=== PATIENT | male | born 1960 | race Hispanic/Latino ===

== ENCOUNTER 2025-01-21 11:20 | Inpatient (IN) | payer SELFPAY ==
[~2025-01-21] VITALS: Ht 152.4 cm; Wt 78.2 kg
[2025-01-21] VITALS (16 sets, daily range): BP systolic 116–172; BP diastolic 45–96; PULSE 57–71; RESP 15–27; TEMP 98.1–98.6; O2SAT 95
--- NOTE | 2025-01-21 11:30 | NUR ---
PT ARRIVED IN ROOM 15. PRESENTS WITH ACUTE CHEST PAIN WELL DIAPHORESIS. BILATERAL 18G IVS ESTABLISHED. CONSENT FORM SIGNED. PT WAS ATTACHED TO THE LANGUAGE INSTRUCTOR. 324MG OF ASPIRIN GIVEN, 1 PLAVIX, AND 5000 UNITS OF A HEPARIN BOLUS WAS GIVEN. HEPARIN DRIP STARTED AT A RATE OF 17 UNITS INITIATED AT BEDSIDE.
--- NOTE | 2025-01-21 11:31 | ERN ---
General Chief Complaint: Chest Pain Stated Complaint: CHEST PAIN Time Seen by MD: 11:21 Source: patient History of Present Illness Initial Comments Is a 64-year-old gentleman coming in complaining of chest pain. Patient states that the chest pain began 30 minutes prior to arrival. He also states he does has a history of diabetes and hypertension. Allergies: Coded Allergies: No Known Drug Allergies (Unverified Allergy, Unknown, 01/21/25) Past Medical History Past Medical History: No Pertinent History Past Surgical History: None ROS Dictation CONSTITUTIONAL: No chills, no fever, no weakness, no diaphoresis, no malaise. HEAD/FACE: No signs of trauma. EENT: No eye pain, no blurred vision, no tearing, no double vision, no ear pain, no ear discharge, no nose pain, no nasal congestion, no throat pain, no throat swelling, no mouth pain. RESPIRATORY: No cough, no orthopnea, SOB, no stridor, no wheezing. CARDIOVASCULAR: chest pain, no edema, no palpitations, no syncope. GASTROINTESTINAL/ABDOMINAL: No abdominal pain, no constipation, no diarrhea, no nausea, no vomiting. GENITOURINARY: No abnormal discharge, no dysuria, no frequent urination, no he maturia. No complaints of pain in the genitals. MUSCULOSKELETAL: No back pain, no gout, no joint pain, no joint swelling, no m uscle pain, no muscle stiffness, no neck pain. INTEGUMENTARY: No change in color, no change in hair/nails, no dryness, no lesi on, no lumps, no rash. NEUROLOGICAL/PSYCH: No anxiety, not depressed, no emotional problem, no headache, no numbness, no pre-existing deficit, no history of seizures, no tremors, no weakness. HEMATOLOGIC/LYMPHATIC: Not anemic, no history of blood clots, no apparent bleeding, no bruising, glands not swollen. All Systems Negative, Except as Noted. Physical Exam Physical Exam Dictation VITAL SIGNS: Reviewed. GENERAL APPEARANCE: Alert, oriented x3, acute distress, obese. HEAD AND FACE: Non-traumatic. EYES: PERRL, pink conjunctivas, eyelid no trauma, anterior chamber clear. EARS: Pinnas intact and no signs of trauma or erythema. Ear canals clear and no discharge. TMs no erythema. NOSE: No discharge, no bleeding. OROPHARYNX: Mouth normal, teeth no caries, tongue pink. Pharynx clear, no erythema. Tonsils no exudates, no abscesses noted. Mucous membrane moist. NECK: Supple, non-tender, no thyromegaly, no masses, no JVD, no bruits. BREAST: Deferred. CHEST: No tenderness, no crepitus, no paradoxical movement, no retractions. LUNGS: Clear, well-ventilated, symmetric, no rales, no wheezing, no rhonchi, no stridor, good breath sounds bilaterally. HEART: Regular rate, regular rhythm, no murmur, no gallops. VASCULAR: No peripheral edema. ABDOMEN: Soft, positive bowel sounds, nondistended, no guarding, nontender, no rebound, no masses no hepatomegaly, no splenomegaly, no Dickson's sign, no hernias. RECTAL: Deferred. GENITAL: Deferred. NEUROLOGICAL: Normal speech, gross motor function intact, gross sensory function intact. MUSCULOSKELETAL: Neck nontender, full range of motion, back nontender, full range of motion. EXTREMITIES: Nontender, full range of motion. SKIN: Color pink, dry, no turgor, no rash, no lacerations, no abrasions, no contusions. LYMPHATICS: Deferred. Results Laboratory and Microbiology Labs Reviewed?: Yes EKG/XRAY/US/CT/MRI EKG Comment EKG- ED Course Orders Procedure Category Date Status Time Cbc With Differential LAB 01/21/25 Logged 11:23 Prothrombin Time With LAB 01/21/25 Logged INR 11:23 Lipid Panel LAB 01/21/25 Logged 11:23 Chest 1vw RAD 01/21/25 Logged 11:23 12 Lead Ekg Tracing- EKG 01/21/25 Logged Technical 11:23 Clopidogrel 75mg Tab PHA 01/21/25 Logged (Plavix 75mg) 11:30 Nitroglycerin 0.4mg PHA 01/21/25 Logged Sl Tab (Nitrostat) 11:30 Magnesium LAB 01/21/25 Logged 11:23 Creatine Kinase, Total LAB 01/21/25 Logged 11:23 Troponin I High LAB 01/21/25 Logged Sensitivity 11:23 Aspirin 325mg Tab PHA 01/21/25 Logged (Aspirin 325mg Tab) 11:30 Urinalysis Profile LAB 01/21/25 Logged 11:23 Partial LAB 01/21/25 Logged Thromboplastin Time 11:23 Basic Metabolic Panel LAB 01/21/25 Logged 11:23 Nitroglycerin 0.4mg PHA 01/21/25 Complete Sl Tab (Nitrostat) 11:26 Aspirin 325mg Ec Tab PHA 01/21/25 Complete (Aspirin 325mg Ec T 11:26 Clopidogrel 300mg Tab PHA 01/21/25 Complete (Plavix 300mg Tab) 11:27 Heparin 5,000 Unit PHA 01/21/25 Complete Vial (Heparin 5,000 U 11:31 [id number]/250ml PHA 01/21/25 Transmitted Iv Bag 12:00 Heparin 5,000 Unit PHA 01/21/25 Transmitted Vial (Heparin 5,000 U 12:00 Current Medications Medications (Trade) Dose Ordered Sig/Lalitha Route PRN Reason Start Time Stop Time Status Last Admin Dose Admin Aspirin (Aspirin 325mg Ec Tab) 325 mg STK-MED ONCE PO 01/21/25 11:26 01/21/25 11:27 DC Aspirin (Aspirin 325mg Tab) 325 mg ONCE ONCE PO 01/21/25 11:30 01/21/25 11:31 UNV Clopidogrel Bisulfate (plaVIX 300MG TAB) 300 mg STK-MED ONCE .ROUTE 01/21/25 11:27 01/21/25 11:27 DC Clopidogrel Bisulfate (plaVIX 75MG) 75 mg ONCE ONCE PO 01/21/25 11:30 01/21/25 11:31 UNV Heparin Sodium (Porcine) (HEParin 5,000 UNIT VIAL) 5,000 unit STK-MED ONCE .ROUTE 01/21/25 11:31 01/21/25 11:31 DC Nitroglycerin (Nitrostat) 0.4 mg Q5M PRN SL CHEST PAIN 01/21/25 11:30 UNV Nitroglycerin (Nitrostat) 0.4 mg STK-MED ONCE SL 01/21/25 11:26 01/21/25 11:27 DC DX & DISP Departure Condition: Stable Referrals: SELF,REFERRAL (PCP) ISABELLA DIAZ MD Jan 21, 2025 11:31
[2025-01-21] MEDS: ASPIRIN 325MG EC TAB PO ONE (11:35)
[2025-01-21] MEDS: NITROGLYCERIN 0.4 MG SL TAB SL ONE (11:36)
[2025-01-21] MEDS: ASPIRIN 325MG TAB PO ONE (11:37)
[2025-01-21] MEDS: NITROGLYCERIN 0.4 MG SL TAB SL PRN (11:37)
[2025-01-21] MEDS ORDERED: SODIUM BICARB 50MEQ 50ML VIAL 50 ML ONE (11:38)
[2025-01-21] MEDS ORDERED: HEParin-NS 1,000 UNIT/500 ML 1,000 ML IV ONE (11:38)
[2025-01-21] MEDS ORDERED: LIDOCAINE HCL 400MG/20ML VIAL ONE (11:38)
[2025-01-21] MEDS ORDERED: IOHEXOL 350 MG/ML 100ML INFUS..BTL IV ONE ×2 (11:38→13:04)
--- NOTE | 2025-01-21 11:40 | NUR ---
pt taken by laboratory equipment installer and dr francois
[2025-01-21 11:41] LABS: IMMATURE GRANULOCYTE ABSOLUTE 0.04 K/uL (0-1); NUCLEATED RED BLOOD CELLS 0.0 % (0.0-0.19); PLATELET COUNT (AUTO) 238 K/uL (130-400); RED BLOOD CELL COUNT(AUTO) 5.20 MIL/uL (4.50-6.20); RED CELL DISTRIBUTION WIDTH 13.7 % (11.0-15.5); WHITE BLOOD COUNT (AUTO) 9.2 K/uL (4.8-10.8)
--- NOTE | 2025-01-21 11:47 | EKG ---
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
[2025-01-21] MEDS ORDERED: NITROGLYCERIN 50MG VIAL ONE (11:51)
[2025-01-21] MEDS ORDERED: BIVALIRUDIN 250 MG/VIAL IV ONE (11:52)
--- NOTE | 2025-01-21 11:52 | CONS ---
The patient is admitted from the emergency room with a chief complaint of chest pain which began this morning at a time the patient can not specify and is associated with shortness of breath. Patient is intense in the patient's bagging us for relief. He does seem oriented to person place and time. He denies lung problems, ulcers or GI bleeding, but admits to reflux and stomach discomfort which has been chronic and also recent. Patient has been experiencing chest discomfort off and on recently that has relieved by drinking soft drinks. He has no history of asthma or wheezing, difficulty passing urine, syncope or presyncope or previous strokes or MIs. He admits to bilateral claudication with ambulation. Remaining medical history is limited because of the urgent nature of the evaluation and his emergency presentation. Physical exam shows pulse 48 per minute with blood pressure 135/78 and saturation 92% on 6 L oxygen. Neck veins are difficult to assess because the patient has drains and grunts, carotid volume is fair, chest is clear and respiratory pattern is nonlabored. No retractions. S1 and S2 are preserved, no murmur, regular rhythm. Abdomen is scaphoid with normal bowel sounds. Extremities are free of edema. Diminished pulses in feet, one to 2+ radial pulses. Twelve lead ECG shows [address]-elevation in the inferior leads and significant ST elevation in leads V3-V6 with ST depression in leads one and aVL. Laboratory data is pending Impression and plan: Patient presents with a ST-elevation myocardial infarct affecting the anterior and inferior leads, extensive area of myocardial injury, and we will proceed with invasive evaluation and treatment. Vitals/Labs Laboratory Tests 01/21/25 11:33 Allergies: Coded Allergies: No Known Drug Allergies (Unverified Allergy, Unknown, 01/21/25) Medications Current Medications Clopidogrel Bisulfate 75 mg ONCE ONCE PO; Start 01/21/25 at 11:30; Stop 01/21/25 at 11:34; Status DC Nitroglycerin 0.4 mg Q5M PRN SL Last administered on 01/21/25at 11:39; Start 01/21/25 at 11:30 Aspirin 325 mg ONCE ONCE PO Last administered on 01/21/25at 11:37; Start 01/21/25 at 11:30; Stop 01/21/25 at 11:34; Status DC Nitroglycerin 0.4 mg STK-MED ONCE SL; Start 01/21/25 at 11:26; Stop 01/21/25 at 11:27; Status DC Aspirin 325 mg STK-MED ONCE PO; Start 01/21/25 at 11:26; Stop 01/21/25 at 11:27; Status DC Clopidogrel Bisulfate 300 mg STK-MED ONCE .ROUTE; Start 01/21/25 at 11:27; Stop 01/21/25 at 11:27; Status DC Heparin Sodium (Porcine) 5,000 unit STK-MED ONCE .ROUTE; Start 01/21/25 at 11:31; Stop 01/21/25 at 11:31; Status DC Heparin Sodium/ Dextrose 250 ml @ 0 mls/hr PROTOCOL PRN IV; Start 01/21/25 at 12:00; Stop 01/22/25 at 11:59 Heparin Sodium (Porcine) 5,000 unit ONCE ONCE IV; Start 01/21/25 at 12:00; Stop 01/21/25 at 12:01 Heparin Sodium/ Dextrose 250 ml @ As Directed STK-MED ONCE IV; Start 01/21/25 at 11:34; Stop 01/21/25 at 11:34; Status DC Clopidogrel Bisulfate 300 mg ONCE ONCE PO Last administered on 01/21/25at 11:38; Start 01/21/25 at 12:00; Stop 01/21/25 at 12:01 Lidocaine HCl 20 ml STK-MED ONCE .ROUTE; Start 01/21/25 at 11:38; Stop 01/21/25 at 11:38; Status DC Sodium Bicarbonate 50 ml @ As Directed STK-MED ONCE .ROUTE; Start 01/21/25 at 11:38; Stop 01/21/25 at 11:38; Status DC Iohexol 35,000 mg STK-MED ONCE IV; Start 01/21/25 at 11:38; Stop 01/21/25 at 11:38; Status DC Heparin Sodium (Porcine) 10,000 unit STK-MED ONCE .ROUTE; Start 01/21/25 at 11:38; Stop 01/21/25 at 11:38; Status DC Heparin Sodium/ Sodium Chloride 1,000 ml @ As Directed STK-MED ONCE IV; Start 01/21/25 at 11:38; Stop 01/21/25 at 11:38; Status DC Nitroglycerin/ Dextrose 250 ml @ 0 mls/hr PROTOCOL IV; Start 01/21/25 at 12:00; Stop 02/20/25 at 11:59 Nitroglycerin/ Dextrose 1 ml @ As Directed STK-MED ONCE .ROUTE; Start 01/21/25 at 11:40; Stop 01/21/25 at 11:40; Status DC ARIEL PENDLETON MD Jan 21, 2025 11:52
[2025-01-21] MEDS ORDERED: MIDAZOLAM HCL 1 MG/ML 2ML VIAL ONE (11:55)
[2025-01-21 11:58] LABS: CREATINE KINASE, TOTAL 117.0 U/L (21-232); CREATININE 1.5 mg/dL (0.5-1.3); GLOMERULAR FILTR. RATE CALC 52.0 mL/min (>90); GLUCOSE,RANDOM 219.0 mg/dL (70-105); LDL DIRECT 171.0 mg/dL (0-99); SODIUM SERUM 142.0 mmol/L (136-145); UREA NITROGEN, BLOOD 27.0 mg/dL (7-18)
[2025-01-21] MEDS ORDERED: NITROGLYCERIN 50MG/D5W 250ML 250 BOT IV SCH (12:00)
[2025-01-21] MEDS ORDERED: IOHEXOL-350 50ML VIAL IV ONE (12:12)
[2025-01-21] MEDS ORDERED: ATROPINE 1MG SYG IVP ONE (12:21)
[2025-01-21] MEDS: NITROGLYCERIN 50MG/D5W 250ML 1 BOT ONE (12:22)
[2025-01-21] MEDS ORDERED: MAGNESIUM 2GM PREMIX 50ML 50 ML IV SCH (12:30)
[2025-01-21] MEDS ORDERED: HEParin-NS 1,000 UNIT/500 ML 500 ML IV ONE (12:34)
[2025-01-21 13:10] LABS: ASPARTATE AMINOTRANSFERASE 35.0 U/L (10-37); TOTAL PROTEIN, SERUM 7.7 g/dL (6.0-8.3)
--- NOTE | 2025-01-21 14:19 | PRN ---
Coronary Arteriogram With Ptca And Drug-Eluting Stent To Proximal Right Coronary And Distal Right Coronary, As Well As Common Left Circumflex And Om2 Indication: STEMI with extensive ST-elevation in inferior leads and V2-V6. Technique: Patient was brought to the lab in a fasting state after informed consent and sedated with 1 mg Versed and 50 mcg fentanyl. Additional fentanyl was administered as needed during the procedure. Under local anesthesia with 1% lidocaine using ultrasound guidance right radial access was gained at a 5/6 [place] Terumo sheath was inserted. A cocktail of 5000 units aqueous heparin, 200 mcg nicardipine and 200 mcg nitroglycerin were administered via the radial sheath. There was tortuosity at the right brachial so a baby J wire was used to advance a six [place] take to the aortic root where left and right coronary arteriograms were attempted unsuccessfully because we could not cannulate with this catheter. We exchanged for a six [place] 3 cm left Ena and with some difficulty engage the left main for left coronary arteriography. We exchanged for a six [place] JR4 and engage the right coronary for right coronary arteriograms. We administered an additional 1500 units aqueous heparin intravenously. We then wire the right coronary with a 300 cm whisper wire and advanced a 3 x 20 mm mm Euphora to the proximal right coronary lesion and free dilated. We could not advance a stent so we exchanged for a guide liner, then using a fine cross exchange catheter we exchanged for a wiggle wire which was positioned in the posterolateral branch of the right coronary. We then successfully advanced a 4 x 34 mm monroe [place] drug-eluting stent across the proximal right coronary stenosis, optimize positioning and deployed at nominal pressure. We inspected results and exchanged for a 3.5 x 18 mm monroe [place] which was positioned across the distal right coronary stenoses and deployed at nominal pressure. We inspected results angiographically and exchanged for a six [place] 3.0 XB guide with which we engage the left main. We then wired the circumflex with another whisper wire and advanced the guide liner to the proximal circumflex. We pre-dilated with a 3.5 by 20 mm Euphora and exchanged for a 4 x 22 monroe [place] drug-eluting stent which was positioned in the proximal circumflex and deployed at nominal pressure. We then exchanged for a 3.5 x 12 mm monroe [place] which was deployed at the origin of the OM2 at nominal pressure. Final results were inspected and we with due the catheters and applied a Terumo sheath for hemostasis with excellent hemostasis and no complications. Heparinization was checked by a [employer] ARCHITECT and was above 250 throughout the procedure. Patient was transferred from the lab in stable condition. 175 mL contrast was administered in total. Results: This is a right-dominant system. The right coronary supplies the posterior descending and three posterolateral johnson. There is a segmental diffuse 30 mm long 98% stenosis commencing from the conus branch through the right ventricular marginal, then there was a 90% stenosis just proximal to the 2nd posterolateral. The rest of the right coronary system is free of high-grade disease. The conus arises very near the ostium of the right coronary. The left main is free of disease. The left anterior descending supplies to diagonals and courses to the apex and is free of disease. The left circumflex supplies a tiny 1st obtuse marginal and a very large 2nd obtuse marginal which approaches the apex. Proximal to and spanning the origin of the 1st obtuse marginal is a critical 90 % stenosis and at the origin of the 2nd obtuse marginal is another 90% stenosis. Intervention: The proximal right coronary 98% culprit lesion is reduced to a 0% residual with ÁNGELA 3 flow. The distal right coronary 90% lesion is reduced to a 0% residual with ÁNGELA three flow. Proximal left circumflex 90% stenosis reduced to 0% residual with ÁNGELA three flow. Distal left circumflex 90% stenosis reduced to 0% residual with ÁNGELA three flow. Conclusions: Massive inferior and lateral STEMI treated successfully with right coronary and left circumflex drug-eluting stent implant, door to balloon time 59 minutes. ARIEL PENDLETON MD Jan 21, 2025 14:19
[2025-01-21] MEDS: 0.9%NACL 1000ML 1,000 ML IV SCH (14:34)
[2025-01-21] MEDS ORDERED: GLIP-302 PO (14:58)
[2025-01-21] MEDS ORDERED: GLUCAGON 1MG KIT 1 MG ML IM PRN (15:30)
[2025-01-21] MEDS ORDERED: DEXTROSE 50%-WATER 50 ML DISP.SYRIN IV PRN (15:30)
[2025-01-21] MEDS ORDERED: POTA-202 PO (15:54)
[2025-01-21] MEDS ORDERED: MAGN400T40 PO (15:54)
--- NOTE | 2025-01-21 15:55 | NUR ---
Dr. Samuels notified of home medications in system to review.
[2025-01-21 16:48] LABS: CREATININE 1.0 mg/dL (0.5-1.3); GLOMERULAR FILTR. RATE CALC 85.0 mL/min (>90); GLUCOSE,RANDOM 136.0 mg/dL (70-105); SODIUM SERUM 141.0 mmol/L (136-145); UREA NITROGEN, BLOOD 24.0 mg/dL (7-18)
[2025-01-21 16:55] LABS: INR 1.0 (0.85-1.15)
--- NOTE | 2025-01-21 17:07 | HP ---
[facility] HISTORY AND PHYSICAL Date of Service: Jan 21, 2025 Time of Service: 16:57 HISTORY OF PRESENT ILLNESS: Date of service: 01/21/2025, patient [place] [facility] 64-year-old male with underlying history of type 2 diabetes mellitus, obesity, history of hypokalemia, history of hypomagnesemia on outpatient electrolyte supplementation, presented to the ER for further evaluation of chest pain. Patient reported that he developed severe chest pain close to 9-10 a.m. today accompanied by diaphoresis, and dizziness. Denies any previous history of ME or cardiac comorbidities. Chest pain was 10/10 in severity and patient describes it as pressure-like. Chest pain was nonresolving prompting him to come to the ER for further evaluation. On presentation,[address]-elevation in the inferior leads and in leads V3-V6. Patient was emergently taken to the greenhouse laborer where he was found to have proximal right coronary 98% culprit lesion and distal right coronary 90% lesion. Patient underwent PTCA and placement of drug-eluting stent to proximal RCA and distal right coronary artery. Patient was also found to have 90% proximal left circumflex stenosis and distal left circumflex 90% stenosis. Patient underwent PTCA and stenting to proximal and distal left circumflex. Patient was seen post PCI and denies any chest pain. Denies any shortness of breath. We will monitor this patient closely. Patient will continue with close monitoring in CCU post catheterization. REVIEW OF SYSTEMS CONSTITUTIONAL: Denies fevers, chills, or night sweats. No unintentional weight loss reported. NEUROLOGICAL: Denies headache, amaurosis fugax, motor weakness, sensory deficit, vertigo/spinning sensation, gait abnormalities, or tremors. ENT: No hearing loss, otalgia, otorrhea, rhinitis, rhinorrhea, hoarseness, or sore throat. CARDIOVASCULAR: severe chest pain in the morning today with diaphoresis PULMONARY: Denies any shortness of breath, cough, phlegm/sputum, hemoptysis, pleuritic chest pain. SLEEP: Denies morning headaches, daytime somnolence or napping. Denies difficulty falling asleep, staying asleep, waking from sleep. Denies knowledge of snoring. GASTROINTESTINAL: Denies any type of dysphagia to either liquids or solids. Denies nausea, vomiting, pyrosis, early satiety, abdominal pain, diarrhea, constipation, or changes in stool consistency or caliber. Denies coffee-ground emesis, hematemesis, hematochezia, or melanotic stools. GENITOURINARY: Denies frequency, urgency, nocturia, hematuria or incontinence (Storage/Irritative symptoms.) Low urinary stream, straining to void, urinary intermittency or hesitancy, splitting of the voiding stream, terminal dribbling. ENDOCRINOLOGIC: Denies polyuria, polydipsia, polyphagia or heat/cold intolerances. HEMATOLOGIC: Denies thrombophilia/previous clots, or coagulopathy/bleeding disorders. ONCOLOGIC: Denies personal history of malignancy. DERMATOLOGIC: Denies rashes or pruritus. PSYCHIATRIC: Denies any suicidal or homicidal ideation. Denies hallucinations. PAST MEDICAL HISTORY: Type 2 diabetes mellitus, history of hypokalemia and hypomagnesemia on outpatient potassium and magnesium supplementation PAST SURGICAL HISTORY: Denies any history of previous surgeries PAST SOCIAL HISTORY: Patient is ambulatory at home, independent with ADLs and IADLs, denies any significant smoking, alcohol consumption or any drug use FAMILY HISTORY: Mom with history of heart disease in her 70s Allergies: No known drug allergies Home medications: Patient reports being on glipizide, oral potassium chloride as well as magnesium oxide Coded Allergies: No Known Drug Allergies (Unverified Allergy, Unknown, 01/21/25) PHYSICAL EXAM GENERAL APPEARANCE: The patient is awake, alert, and oriented, in no acute cardiopulmonary distress. NEUROLOGICAL: Cranial nerves II-XII grossly intact. Motor is 5/5 in bilateral upper and lower extremities proximal to distal. No sensory deficits. HEENT: Face is symmetric. Pupils are equal and reactive. Extraocular movements are intact. NECK: Supple. No JVD. No thyromegaly. No submental, submandibular, pre- /postauricular, occipital or supraclavicular lymphadenopathy. CHEST: Normal chest expansion. No Telemetry. LUNGS: Absence of any rales, rhonchi or any wheezing. CARDIOVASCULAR: Regular. S1 and S2 normal. No appreciable rubs, murmurs or gallops. ABDOMEN: Soft, nontender, and nondistended. There is no rebound, voluntary guarding, or rigidity. : Deferred. No Tucker. EXTREMITIES: Non-edematous and not cyanotic. No clubbing. Good capillary refill. SKIN: No skin breakdown. Vital Sign (Last 24 Hours) 01/21/25 01/21/25 11:38 16:15 Pulse 57 Resp 16 B/P (MAP) 137/84 Pulse Ox 96 O2 Delivery Room Air O2 Flow Rate 2 FiO2 28 LABS: Laboratory: Test 01/21/25 16:32 01/21/25 14:29 01/21/25 11:33 Range/Units Prothrombin Time 10.6 9.6-11.6 SEC Prothromb Time International Ratio 1.00 0.85-1.15 Activated Partial Thromboplast Time 33.1 26.3-35.5 SEC Whole Blood Glucose 145 H 70-110 MG/DL White Blood Count 9.2 4.8-10.8 K/uL Red Blood Count 5.20 4.50-6.20 MIL/uL Hemoglobin 16.6 14.0-18.0 g/dL Hematocrit 47.3 42-54 % Mean Corpuscular Volume 91.0 79-99 fL Mean Corpuscular Hemoglobin 31.9 27.0-33.0 pg Mean Corpuscular Hemoglobin Concent 35.1 32.0-36.0 g/dL Red Cell Distribution Width 13.7 11.0-15.5 % Platelet Count 238 130-400 K/uL Mean Platelet Volume 9.8 7.5-10.5 fL Immature Granulocyte % (Auto) 0.4 0-1 % Neutrophils (%) (Auto) 66.3 40.0-77.0 % Lymphocytes (%) (Auto) 25.0 21.0-51.0 % Monocytes (%) (Auto) 7.0 3.0-13.0 % Eosinophils (%) (Auto) 0.5 0.0-8.0 % Basophils (%) (Auto) 0.8 0.0-5.0 % Neutrophils # (Auto) 6.1 1.8-7.7 K/uL Lymphocytes # (Auto) 2.3 1.0-4.8 K/uL Monocytes # (Auto) 0.6 0.1-1.0 K/uL Eosinophils # (Auto) 0.05 0.00-0.70 K/uL Basophils # (Auto) 0.07 0.00-0.20 K/uL Absolute Immature Granulocyte (auto 0.04 0-1 K/uL Nucleated Red Blood Cells 0.0 0.0-0.19 % Sodium Level 142 136-145 mmol/L Potassium Level 3.1 L 3.5-5.1 mmol/L Chloride Level 103 101-111 mmol/L Carbon Dioxide Level 26 21-32 mmol/L Blood Urea Nitrogen 27 H 7-18 mg/dL Creatinine 1.5 H 0.5-1.3 mg/dL Glomerular Filtration Rate Calc 52 >90 mL/min Random Glucose 219 H 70-105 mg/dL Hemoglobin A1c 6.0 4.0-6.0 % Estimated Average Glucose (eAG) 126 70-126 mg/dL Total Calcium 9.0 8.5-10.1 mg/dL Magnesium Level 1.40 L 1.80-2.40 mg/dL Total Bilirubin 0.8 0.2-1.0 mg/dL Direct Bilirubin 0.2 0.0-0.3 mg/dL Aspartate Amino Transf (AST/SGOT) 35 10-37 U/L Alanine Aminotransferase (ALT/SGPT) 72 12-78 U/L Alkaline Phosphatase 62 50-136 U/L Total Creatine Kinase 117 21-232 U/L Troponin I High Sensitivity 17 4-75 ng/L B-Type Natriuretic Peptide 30 0-100 pg/mL Total Protein 7.7 6.0-8.3 g/dL Albumin 3.7 3.5-5.0 g/dL Triglycerides Level 353 H 30-200 mg/dL Cholesterol Level 264 H <200 mg/dL LDL Cholesterol 171 H 0-99 mg/dL HDL Cholesterol 48 29-71 mg/dL Thyroid Stimulating Hormone (TSH) 5.17 H 0.36-3.74 uIU/mL Current Medications Medications (Trade) Dose Ordered Sig/Lalitha Route PRN Reason Start Time Stop Time Status Last Admin Dose Admin Acetaminophen (TYLenol 325MG TAB) 650 mg Q6H PRN PO MILD PAIN (1-3) 01/21/25 12:30 02/20/25 12:29 Acetaminophen/ Codeine Phosphate (TYLenol-coDEINE TAB) 1 tab Q4H PRN PO PAIN LEVEL 4 TO 6 01/21/25 14:00 02/20/25 13:59 Acetaminophen/ Codeine Phosphate (TYLenol-coDEINE TAB) 2 tab Q4H PRN PO MOD/SEVERE PAIN LEVEL 4 TO 10 01/21/25 14:00 02/20/25 13:59 Aspirin (Aspirin 81mg Chew Tab) 81 mg DAILY PO 01/22/25 09:00 02/21/25 08:59 Atorvastatin Calcium (LIPItor 40MG) 80 mg HS PO 01/21/25 21:00 02/20/25 20:59 Clopidogrel Bisulfate (plaVIX 75MG) 75 mg DAILY PO 01/22/25 09:00 02/21/25 08:59 Dextrose (D50w) 50 ml AD PRN IV HYPOGLYCEMIA PROTOCOL 01/21/25 15:30 02/20/25 15:29 Glucagon (Glucagon 1mg Kit) 1 mg AD PRN IM HYPOGLYCEMIA PROTOCOL 01/21/25 15:30 02/20/25 15:29 Heparin Sodium/ Dextrose 250 ml @ 0 mls/hr PROTOCOL PRN IV PROTOCOL 01/21/25 12:00 01/22/25 11:59 01/21/25 12:05 17 MLS/HR Insulin Human Regular (humuLIN R 100 UNIT/ML 3ML) INSULIN SLIDING SCAL... ACHS SQ 01/21/25 16:30 02/20/25 16:29 Magnesium Oxide (Mag-Ox) 400 mg BID PO 01/21/25 21:00 02/20/25 20:59 Magnesium Sulfate 50 ml @ 0 mls/hr PROTOCOL IV 01/21/25 12:30 01/21/25 14:02 DC Magnesium Sulfate 50 ml @ 0 mls/hr PROTOCOL IV 01/21/25 14:00 02/20/25 13:59 Metoprolol Succinate (TopROL XL) 25 mg DAILY PO 01/22/25 09:00 02/21/25 08:59 Nitroglycerin (Nitrostat) 0.4 mg Q5M PRN SL CHEST PAIN 01/21/25 11:30 01/21/25 11:39 0.4 MG Nitroglycerin/ Dextrose 250 ml @ 0 mls/hr PROTOCOL IV 01/21/25 12:00 02/20/25 11:59 Ondansetron HCl (zoFRAN 4MG INJ) 4 mg Q6H PRN IVP NAUSEA/VOMITING 01/21/25 12:30 02/20/25 12:29 Pantoprazole Sodium (PROTonix 40MG TAB) 40 mg DAILY PO 01/22/25 09:00 02/21/25 08:59 Potassium Chloride (K-Dur/Klor-Con 20meq) 40 meq Q6H6 PO 01/21/25 18:00 01/22/25 06:01 Sodium Chloride 1,000 ml @ 125 mls/hr AD IV 01/21/25 14:00 01/21/25 21:59 01/21/25 14:34 125 MLS/HR DIAGNOSTICS / RADIOLOGY: Currently pending ASSESSMENT: ACS/ST-elevation ME, POA s/p PTCA And Drug-Eluting Stent To Proximal Right Coronary And Distal Right Coronary and Common Left Circumflex and OM2 by Dr. Donato, POA History of type 2 diabetes mellitus, POA Hyperlipidemia, POA CKD stage 3, POA Hypokalemia/hypomagnesemia, POA History of hypokalemia, POA History of hypomagnesemia, POA PLAN: Patient will continue with close monitoring in CCU Continue with dual antiplatelet therapy with aspirin and Plavix post PCI to RCA and left circumflex Patient has been started on metoprolol succinate 25 mg daily, continue with Lipitor 80 mg daily We will obtain a 2D echocardiogram to assess LV EF We will maintain potassium greater than four and magnesium greater than two, patient will receive 40 meq of KCL today x 3 doses Continue with electrolytes replacement protocol for potassium and magnesium Continue with post catheterization care per Dr. Donato All labs will be repeated in the morning, we will obtain A1c and TSH We will see how patient progresses in the next 48-72 hours Date of service: 01/21/2025 Plan of care was discussed with patient at bedside, Serge Samuels MD Advanced Care Planning: Which of the following were discussed: Hospice care: Yes __ No _X_ Therapeutic options: Yes _X_ No __ Advance directives: Yes _X_ No __ Other discussions: Discussed with who?: Patient Voluntary nature of this service was explained to the patient? Yes _x_ No __ Amount of time spent: 20 minutes SERGE SAMUELS MD Jan 21, 2025 17:07
[2025-01-21 17:11] LABS: CREATINE KINASE, TOTAL 497.0 U/L (21-232)
[2025-01-21] MEDS: MAGNESIUM 2GM PREMIX 50ML 50 ML IV SCH (17:16)
[2025-01-21] MEDS: PoTASSium chloRIDE 20MEQ ER 20 MEQ ERTAB PO SCH (17:16)
--- NOTE | 2025-01-21 17:47 | HMCIMG ---
EXAM: CR Chest, 1 View. CLINICAL HISTORY: cp COMPARISON: None provided. FINDINGS: LUNGS: The lungs show no infiltrate or other acute finding. PLEURAL SPACES: No evidence of pleural effusion or pneumothorax. MEDIASTINUM: Cardiac size and mediastinal contours within normal limits. BONES: No aggressive appearing osseous lesion seen. IMPRESSION: No acute cardiopulmonary pathology is evident. /[place]
[2025-01-21] MEDS: MAGNESIUM OXIDE 400 MG TABLET PO SCH (20:18)
[2025-01-21 22:23] LABS: CREATINE KINASE, TOTAL 860 U/L (21-232)
[2025-01-22] VITALS (18 sets, daily range): BP systolic 93–142; BP diastolic 34–91; PULSE 58–74; RESP 6–88; TEMP 97.9–99; O2SAT 67–95
[2025-01-22 04:22] LABS: IMMATURE GRANULOCYTE ABSOLUTE 0.05 K/uL (0-1); NUCLEATED RED BLOOD CELLS 0.0 % (0.0-0.19); PLATELET COUNT (AUTO) 187 K/uL (130-400); RED BLOOD CELL COUNT(AUTO) 4.00 MIL/uL (4.50-6.20); RED CELL DISTRIBUTION WIDTH 13.9 % (11.0-15.5); WHITE BLOOD COUNT (AUTO) 7.8 K/uL (4.8-10.8)
[2025-01-22 04:33] LABS: ASPARTATE AMINOTRANSFERASE 117.0 U/L (10-37); CREATININE 0.9 mg/dL (0.5-1.3); GLOMERULAR FILTR. RATE CALC 97.0 mL/min (>90); GLUCOSE,RANDOM 120.0 mg/dL (70-105); SODIUM SERUM 141.0 mmol/L (136-145); TOTAL PROTEIN, SERUM 5.9 g/dL (6.0-8.3); UREA NITROGEN, BLOOD 20.0 mg/dL (7-18)
--- NOTE | 2025-01-22 08:05 | HMCIMG ---
EXAMINATION: ULTRASOUND OF THE RETROPERITONEUM. CLINICAL HISTORY: GALA on CKD. COMPARISON: None. TECHNIQUE: Real-time grayscale ultrasound images of the kidneys. FINDINGS: The kidneys are normal in caliber, the right kidney measures 9.6 x 4.7 x 5.2 cm and the left kidney measures 9.9 x 4.2 x 4.9 cm in its craniocaudal, AP, and transverse dimensions respectively. There is normal renal cortical thickness, and increased cortical echogenicity. There is no right renal calculus or hydronephrosis bilaterally. There are calculi that measure 0.9 x 0.5 cm in the upper pole and 0.6 x 0.6 cm in the mid pole of the left kidney. The urinary bladder is normal in caliber and wall thickness. There are no calculi in the urinary bladder. IMPRESSION: Bilateral renal parenchymal disease. Left renal calculi. No obstruction. /[place]
[2025-01-22] MEDS: ASPIRIN 81MG CHEW TAB PO SCH (08:18)
--- NOTE | 2025-01-22 09:41 | EKG ---
[facility] Test Date: 2025-01-22 Test Time: 07:06:12 Pat Name: HOME MOBLEY Department: [facility] Room: 208 1 Gender: M Purchasing Manager/Sales: ERIN : 1960 Requested By: AZEEM PENDLETON [facility]: [id number] MD: Azeem Pendleton Measurements Intervals [place] Rate: 67 P: -22 AL: 139 QRS: -56 QRSD: 96 T: -51 QT: 463 QTc: 490 Interpretive Statements Sinus rhythm Inferior infarct, age indeterminate Nonspecific STT abnormality Compared to ECG 01/21/2025 11:20:29 Sinus bradycardia no longer present First degree AV block no longer present Myocardial infarct finding still present Electronically Signed On 01-23-2025 11:04:40 CDT by Azeem Pendleton Please click the below link to view image of tracing.
[2025-01-22 09:43] LABS: CREATINE KINASE, TOTAL 1349 U/L (21-232)
--- NOTE | 2025-01-22 10:19 | PN ---
[facility] PROGRESS NOTE Date of Service: Jan 22, 2025 Time of Service: 10:14 SUBJECTIVE: [ ] 64-year-old male with underlying history of type 2 diabetes mellitus, obesity, history of hypokalemia, history of hypomagnesemia on outpatient electrolyte supplementation, presented to the ER for further evaluation of chest pain.Patient reported that he developed severe chest pain close to 9-10 a.m. today accompanied by diaphoresis, and dizziness. Denies any previous history of ND or cardiac comorbidities. Chest pain was 10/10 in severity and patient describes it as pressure-like. Chest pain was nonresolving prompting him to come to the ER for further evaluation.Patient was emergently taken to the tailings dam laborer where he was found to have proximal right coronary 98% culprit lesion and distal right coronary 90% lesion. Patient underwent PTCA and placement of drug- eluting stent to proximal RCA and distal right coronary artery. Patient was also found to have 90% proximal left circumflex stenosis and distal left circumflex 90% stenosis. Patient underwent PTCA and stenting to proximal and distal left circumflex. 01/22/25 s/p PCI patient is being followed by multilith operator's echo is pending. Reviewed labs. Post left heart catheterization troponins elevated. No complications postprocedure. We will wait for clearance from multilith operator's. Patient denied chest pain or shortness for breath REVIEW OF SYSTEMS CONSTITUTIONAL: Denies fevers, chills, or night sweats. No unintentional weight loss reported. NEUROLOGICAL: Denies headache, amaurosis fugax, motor weakness, sensory deficit, vertigo/spinning sensation, gait abnormalities, or tremors. ENT: No hearing loss, otalgia, otorrhea, rhinitis, rhinorrhea, hoarseness, or sore throat. CARDIOVASCULAR: severe chest pain in the morning today with diaphoresis PULMONARY: Denies any shortness of breath, cough, phlegm/sputum, hemoptysis, pleuritic chest pain. SLEEP: Denies morning headaches, daytime somnolence or napping. Denies difficulty falling asleep, staying asleep, waking from sleep. Denies knowledge of snoring. GASTROINTESTINAL: Denies any type of dysphagia to either liquids or solids. Denies nausea, vomiting, pyrosis, early satiety, abdominal pain, diarrhea, constipation, or changes in stool consistency or caliber. Denies coffee-ground emesis, hematemesis, hematochezia, or melanotic stools. GENITOURINARY: Denies frequency, urgency, nocturia, hematuria or incontinence (Storage/Irritative symptoms.) Low urinary stream, straining to void, urinary intermittency or hesitancy, splitting of the voiding stream, terminal dribbling. ENDOCRINOLOGIC: Denies polyuria, polydipsia, polyphagia or heat/cold intolerances. HEMATOLOGIC: Denies thrombophilia/previous clots, or coagulopathy/bleeding disorders. ONCOLOGIC: Denies personal history of malignancy. DERMATOLOGIC: Denies rashes or pruritus. PSYCHIATRIC: Denies any suicidal or homicidal ideation. Denies hallucinations. PHYSICAL EXAM GENERAL APPEARANCE: The patient is awake, alert, and oriented, in no acute cardiopulmonary distress. NEUROLOGICAL: Cranial nerves II-XII grossly intact. Motor is 5/5 in bilateral upper and lower extremities proximal to distal. No sensory deficits. HEENT: Face is symmetric. Pupils are equal and reactive. Extraocular movements are intact. NECK: Supple. No JVD. No thyromegaly. No submental, submandibular, pre- /postauricular, occipital or supraclavicular lymphadenopathy. CHEST: Normal chest expansion. No Telemetry. LUNGS: Absence of any rales, rhonchi or any wheezing. CARDIOVASCULAR: Regular. S1 and S2 normal. No appreciable rubs, murmurs or gallops. ABDOMEN: Soft, nontender, and nondistended. There is no rebound, voluntary guarding, or rigidity. : Deferred. No Tucker. EXTREMITIES: Non-edematous and not cyanotic. No clubbing. Good capillary refill. SKIN: No skin breakdown. Vital Signs (last 8hr) Date Time Temp Pulse Resp B/P (MAP) Pulse Ox O2 Delivery O2 Flow Rate FiO2 01/22/25 08:00 95 Room Air* 0 21 01/22/25 07:00 60 19 114/68 94 Room Air 01/22/25 06:00 58 17 119/61 96 Room Air 01/22/25 05:00 59 13 123/71 95 Room Air 01/22/25 04:00 98.4 67 88 142/91 96 Room Air 01/22/25 04:00 95 Room Air* 0 21 01/22/25 03:00 69 6 128/73 93 Room Air LABS: Laboratory: Test 8/2/25 08:41 01/22/25 03:59 01/21/25 20:01 01/21/25 16:32 Range/Units Total Creatine Kinase 1349 #*H 21-232 U/L Troponin I High Sensitivity 08469 *H 4-75 ng/L White Blood Count 7.8 4.8-10.8 K/uL Red Blood Count 4.00 #L 4.50-6.20 MIL/uL Hemoglobin 12.8 #L 14.0-18.0 g/dL Hematocrit 36.5 #L 42-54 % Mean Corpuscular Volume 91.3 79-99 fL Mean Corpuscular Hemoglobin 32.0 27.0-33.0 pg Mean Corpuscular Hemoglobin Concent 35.1 32.0-36.0 g/dL Red Cell Distribution Width 13.9 11.0-15.5 % Platelet Count 187 130-400 K/uL Mean Platelet Volume 9.5 7.5-10.5 fL Immature Granulocyte % (Auto) 0.6 0-1 % Neutrophils (%) (Auto) 65.1 40.0-77.0 % Lymphocytes (%) (Auto) 24.5 21.0-51.0 % Monocytes (%) (Auto) 8.8 3.0-13.0 % Eosinophils (%) (Auto) 0.6 0.0-8.0 % Basophils (%) (Auto) 0.4 0.0-5.0 % Neutrophils # (Auto) 5.1 1.8-7.7 K/uL Lymphocytes # (Auto) 1.9 1.0-4.8 K/uL Monocytes # (Auto) 0.7 0.1-1.0 K/uL Eosinophils # (Auto) 0.05 0.00-0.70 K/uL Basophils # (Auto) 0.03 0.00-0.20 K/uL Absolute Immature Granulocyte (auto 0.05 0-1 K/uL Nucleated Red Blood Cells 0.0 0.0-0.19 % Sodium Level 141 136-145 mmol/L Potassium Level 3.4 L 3.5-5.1 mmol/L Chloride Level 107 101-111 mmol/L Carbon Dioxide Level 28 21-32 mmol/L Blood Urea Nitrogen 20 H 7-18 mg/dL Creatinine 0.9 0.5-1.3 mg/dL Glomerular Filtration Rate Calc 97 >90 mL/min Random Glucose 120 H 70-105 mg/dL Total Calcium 7.9 L 8.5-10.1 mg/dL Magnesium Level 1.80 1.80-2.40 mg/dL Total Bilirubin 0.8 0.2-1.0 mg/dL Aspartate Amino Transf (AST/SGOT) 117 H 10-37 U/L Alanine Aminotransferase (ALT/SGPT) 67 12-78 U/L Alkaline Phosphatase 54 50-136 U/L Total Protein 5.9 #L 6.0-8.3 g/dL Albumin 2.9 #L 3.5-5.0 g/dL Whole Blood Glucose 137 H 70-110 MG/DL Prothrombin Time 10.6 9.6-11.6 SEC Prothromb Time International Ratio 1.00 0.85-1.15 Activated Partial Thromboplast Time 33.1 26.3-35.5 SEC Test 01/21/25 11:33 Range/Units Hemoglobin A1c 6.0 4.0-6.0 % Estimated Average Glucose (eAG) 126 70-126 mg/dL Direct Bilirubin 0.2 0.0-0.3 mg/dL B-Type Natriuretic Peptide 30 0-100 pg/mL Triglycerides Level 353 H 30-200 mg/dL Cholesterol Level 264 H <200 mg/dL LDL Cholesterol 171 H 0-99 mg/dL HDL Cholesterol 48 29-71 mg/dL Thyroid Stimulating Hormone (TSH) 5.17 H 0.36-3.74 uIU/mL Current Medications Medications (Trade) Dose Ordered Sig/Lalitha Route PRN Reason Start Time Stop Time Status Last Admin Dose Admin Acetaminophen (TYLenol 325MG TAB) 650 mg Q6H PRN PO MILD PAIN (1-3) 01/21/25 12:30 02/20/25 12:29 Acetaminophen/ Codeine Phosphate (TYLenol-coDEINE TAB) 1 tab Q4H PRN PO PAIN LEVEL 4 TO 6 01/21/25 14:00 02/20/25 13:59 Acetaminophen/ Codeine Phosphate (TYLenol-coDEINE TAB) 2 tab Q4H PRN PO MOD/SEVERE PAIN LEVEL 4 TO 10 01/21/25 14:00 02/20/25 13:59 Aspirin (Aspirin 81mg Chew Tab) 81 mg DAILY PO 01/22/25 09:00 02/21/25 08:59 01/22/25 08:18 81 MG Atorvastatin Calcium (LIPItor 40MG) 80 mg HS PO 01/21/25 21:00 02/20/25 20:59 01/21/25 20:18 80 MG Clopidogrel Bisulfate (plaVIX 75MG) 75 mg DAILY PO 01/22/25 09:00 02/21/25 08:59 01/22/25 08:17 75 MG Dextrose (D50w) 50 ml AD PRN IV HYPOGLYCEMIA PROTOCOL 01/21/25 15:30 02/20/25 15:29 Glucagon (Glucagon 1mg Kit) 1 mg AD PRN IM HYPOGLYCEMIA PROTOCOL 01/21/25 15:30 02/20/25 15:29 Heparin Sodium/ Dextrose 250 ml @ 0 mls/hr PROTOCOL PRN IV PROTOCOL 01/21/25 12:00 01/22/25 11:59 01/21/25 12:05 17 MLS/HR Insulin Human Regular (humuLIN R 100 UNIT/ML 3ML) INSULIN SLIDING SCAL... ACHS SQ 01/21/25 16:30 02/20/25 16:29 Magnesium Oxide (Mag-Ox) 400 mg BID PO 01/21/25 21:00 02/20/25 20:59 01/22/25 08:17 400 MG Magnesium Sulfate 50 ml @ 0 mls/hr PROTOCOL IV 01/21/25 12:30 01/21/25 14:02 DC Magnesium Sulfate 50 ml @ 0 mls/hr PROTOCOL IV 01/21/25 14:00 02/20/25 13:59 01/21/25 17:16 1.4 MLS/HR Metoprolol Succinate (TopROL XL) 25 mg DAILY PO 01/22/25 09:00 02/21/25 08:59 01/22/25 08:17 25 MG Nitroglycerin (Nitrostat) 0.4 mg Q5M PRN SL CHEST PAIN 01/21/25 11:30 01/21/25 11:39 0.4 MG Nitroglycerin/ Dextrose 250 ml @ 0 mls/hr PROTOCOL IV 01/21/25 12:00 02/20/25 11:59 Ondansetron HCl (zoFRAN 4MG INJ) 4 mg Q6H PRN IVP NAUSEA/VOMITING 01/21/25 12:30 02/20/25 12:29 Pantoprazole Sodium (PROTonix 40MG TAB) 40 mg DAILY PO 01/22/25 09:00 02/21/25 08:59 01/22/25 08:18 40 MG Potassium Chloride (K-Dur/Klor-Con 20meq) 40 meq Q6H6 PO 01/21/25 18:00 01/22/25 06:01 DC 01/22/25 06:42 40 MEQ Sodium Chloride 1,000 ml @ 125 mls/hr AD IV 01/21/25 14:00 01/21/25 21:59 DC 01/21/25 14:34 125 MLS/HR DIAGNOSTICS / RADIOLOGY: [ ] ASSESSMENT: ACS/ST-elevation ND, POA s/p PTCA And Drug-Eluting Stent To Proximal Right Coronary And Distal Right Coronary and Common Left Circumflex and OM2 by Dr. 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 daily. Imaging: Echo pending results Electrolytes: replaced as per protocol to keep potassium greater than four and magnesium greater than two labs: cbc, cmp mag in am DVT GI prophylaxis Plan of care was discussed with patient at bedside, All questions addressed Further orders as per response to treatment. ATTESTATION BY PHYSICIAN I have seen and examined the patient. I reviewed the documentation, medical decision making, and treatment plan as noted by the mid-level provider above. I agree with the findings and plan of care. Sindy Ron MD, ELIZABETH NP Jan 22, 2025 10:19
--- NOTE | 2025-01-22 12:28 | PN ---
Patient feels well, denies any chest pain or chest pressure or shortness of breath. He is smiling and cheerful. [place] [address] but CPK is only 1300. 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 Echocardiogram is pending. No JVD, no rales or rhonchi, nonlabored respiration, normal S1 and S2, no murmur, neurologically intact, unremarkable extremities with no edema and no catheterization complication. Impression and plan: Stable on current therapy, can be transferred to PCCU telemetry. We will review echocardiogram today. Vitals/Labs Vital Signs Date Time Temp Pulse Resp B/P (MAP) Pulse Ox O2 Delivery O2 Flow Rate FiO2 01/22/25 12:00 94 Room Air* 0 21 01/22/25 10:00 61 19 108/74 01/22/25 08:00 97.9 Laboratory Tests 01/21/25 16:32 01/22/25 03:59 Medications Current Medications Clopidogrel Bisulfate 75 mg ONCE ONCE PO; Start 01/21/25 at 11:30; Stop 01/21/25 at 11:34; Status DC Nitroglycerin 0.4 mg Q5M PRN SL Last administered on 01/21/25at 11:39; Start 01/21/25 at 11:30 Aspirin 325 mg ONCE ONCE PO Last administered on 01/21/25at 11:37; Start 01/21/25 at 11:30; Stop 01/21/25 at 11:34; Status DC Nitroglycerin 0.4 mg STK-MED ONCE SL; Start 01/21/25 at 11:26; Stop 01/21/25 at 11:27; Status DC Aspirin 325 mg STK-MED ONCE PO; Start 01/21/25 at 11:26; Stop 01/21/25 at 11:27; Status DC Clopidogrel Bisulfate 300 mg STK-MED ONCE .ROUTE; Start 01/21/25 at 11:27; Stop 01/21/25 at 11:27; Status DC Heparin Sodium (Porcine) 5,000 unit STK-MED ONCE .ROUTE; Start 01/21/25 at 11:31; Stop 01/21/25 at 11:31; Status DC Heparin Sodium/ Dextrose 250 ml @ 0 mls/hr PROTOCOL PRN IV Last administered on 01/21/25at 12:05; Start 01/21/25 at 12:00; Stop 01/22/25 at 11:59; Status DC Heparin Sodium (Porcine) 5,000 unit ONCE ONCE IV Last administered on 01/21/25at 12:03; Start 01/21/25 at 12:00; Stop 01/21/25 at 12:01; Status DC Heparin Sodium/ Dextrose 250 ml @ As Directed STK-MED ONCE IV; Start 01/21/25 at 11:34; Stop 01/21/25 at 11:34; Status DC Clopidogrel Bisulfate 300 mg ONCE ONCE PO Last administered on 01/21/25at 11:38; Start 01/21/25 at 12:00; Stop 01/21/25 at 12:01; Status DC Lidocaine HCl 20 ml STK-MED ONCE .ROUTE; Start 01/21/25 at 11:38; Stop 01/21/25 at 11:38; Status DC Sodium Bicarbonate 50 ml @ As Directed STK-MED ONCE .ROUTE; Start 01/21/25 at 11:38; Stop 01/21/25 at 11:38; Status DC Iohexol 35,000 mg STK-MED ONCE IV; Start 01/21/25 at 11:38; Stop 01/21/25 at 11:38; Status DC Heparin Sodium (Porcine) 10,000 unit STK-MED ONCE .ROUTE; Start 01/21/25 at 11:38; Stop 01/21/25 at 11:38; Status DC Heparin Sodium/ Sodium Chloride 1,000 ml @ As Directed STK-MED ONCE IV; Start 01/21/25 at 11:38; Stop 01/21/25 at 11:38; Status DC Nitroglycerin/ Dextrose 250 ml @ 0 mls/hr PROTOCOL IV; Start 01/21/25 at 12:00; Stop 02/20/25 at 11:59 Nitroglycerin/ Dextrose 1 ml @ As Directed STK-MED ONCE .ROUTE; Start 01/21/25 at 11:40; Stop 01/21/25 at 11:40; Status DC Nicardipine HCl 25 mg STK-MED ONCE IV; Start 01/21/25 at 11:50; Stop 01/21/25 at 11:51; Status DC Nitroglycerin 50 mg STK-MED ONCE .ROUTE; Start 01/21/25 at 11:51; Stop 01/21/25 at 11:51; Status DC Bivalirudin 250 mg STK-MED ONCE IV; Start 01/21/25 at 11:52; Stop 01/21/25 at 11:52; Status DC Fentanyl Citrate 100 mcg STK-MED ONCE .ROUTE; Start 01/21/25 at 11:55; Stop 01/21/25 at 11:55; Status DC Midazolam HCl 2 mg STK-MED ONCE .ROUTE; Start 01/21/25 at 11:55; Stop 01/21/25 at 11:55; Status DC Iohexol 50 ml STK-MED ONCE IV; Start 01/21/25 at 12:12; Stop 01/21/25 at 12:12; Status DC Acetaminophen 650 mg Q6H PRN PO; Start 01/21/25 at 12:30; Stop 02/20/25 at 12:29 Ondansetron HCl 4 mg Q6H PRN IVP; Start 01/21/25 at 12:30; Stop 02/20/25 at 12:29 Magnesium Sulfate 50 ml @ 0 mls/hr PROTOCOL IV; Start 01/21/25 at 12:30; Stop 01/21/25 at 14:02; Status DC Insulin Human Regular INSULIN SLIDING SCAL... ACHS SQ; Start 01/21/25 at 16:30; Stop 02/20/25 at 16:29 Heparin Sodium (Porcine) 10,000 unit STK-MED ONCE .ROUTE; Start 01/21/25 at 12:17; Stop 01/21/25 at 12:17; Status DC Atropine Sulfate 1 mg STK-MED ONCE IVP; Start 01/21/25 at 12:21; Stop 01/21/25 at 12:21; Status DC Heparin Sodium/ Sodium Chloride 500 ml @ As Directed STK-MED ONCE IV; Start 01/21/25 at 12:34; Stop 01/21/25 at 12:34; Status DC Iohexol 35,000 mg STK-MED ONCE IV; Start 01/21/25 at 13:04; Stop 01/21/25 at 13:04; Status DC Clopidogrel Bisulfate 300 mg STK-MED ONCE .ROUTE; Start 01/21/25 at 13:23; Stop 01/21/25 at 13:24; Status DC Aspirin 81 mg DAILY PO Last administered on 01/22/25at 08:18; Start 01/22/25 at 09:00; Stop 02/21/25 at 08:59 Clopidogrel Bisulfate 75 mg DAILY PO Last administered on 01/22/25at 08:17; Start 01/22/25 at 09:00; Stop 02/21/25 at 08:59 Acetaminophen/ Codeine Phosphate 1 tab Q4H PRN PO; Start 01/21/25 at 14:00; Stop 02/20/25 at 13:59 Acetaminophen/ Codeine Phosphate 2 tab Q4H PRN PO; Start 01/21/25 at 14:00; Stop 02/20/25 at 13:59 Pantoprazole Sodium 40 mg DAILY PO Last administered on 01/22/25at 08:18; Start 01/22/25 at 09:00; Stop 02/21/25 at 08:59 Sodium Chloride 1,000 ml @ 125 mls/hr AD IV Last administered on 01/21/25at 14:34; Start 01/21/25 at 14:00; Stop 01/21/25 at 21:59; Status DC Metoprolol Succinate 25 mg DAILY PO Last administered on 01/22/25at 08:17; Start 01/22/25 at 09:00; Stop 02/21/25 at 08:59 Atorvastatin Calcium 80 mg HS PO Last administered on 01/21/25at 20:18; Start 01/21/25 at 21:00; Stop 02/20/25 at 20:59 Magnesium Sulfate 50 ml @ 0 mls/hr PROTOCOL IV Last administered on 01/21/25at 17:16; Start 01/21/25 at 14:00; Stop 02/20/25 at 13:59 Potassium Chloride 40 meq Q6H6 PO Last administered on 01/22/25at 06:42; Start 01/21/25 at 18:00; Stop 01/22/25 at 06:01; Status DC Dextrose 50 ml AD PRN IV; Start 01/21/25 at 15:30; Stop 02/20/25 at 15:29 Glucagon 1 mg AD PRN IM; Start 01/21/25 at 15:30; Stop 02/20/25 at 15:29 Magnesium Oxide 400 mg BID PO Last administered on 01/22/25at 08:17; Start 01/21/25 at 21:00; Stop 02/20/25 at 20:59 ARIEL PENDLETON MD Jan 22, 2025 12:28
[2025-01-22 14:03] LABS: CREATINE KINASE, TOTAL 1247 U/L (21-232)
--- NOTE | 2025-01-22 17:16 | NUR ---
DCP: INITIAL ASSESSMENT Patient lives with spouse, Risa Perera. He has no home services. Patient has glucometer (no insulin) at home. He is able to drive and complete ADLs independently. PCP is MD at [facility]. Pharmacy is [facility] in [place]. Patient voiced no safety concerns regarding returning home and states she has no difficulty with housing or buying food. DCP is home. Patient has no insurance or benefits. He was provided with community resources for post hospitalization follow up. Patient was also provided with Good RX card for prescriptions and educated on [facility] $4 medication program and [facility] $5 medication program. Patient is being assisted by [facility] for financial matters. Addendum: 01/22/25 at 1718 by FRANKI LYLE SS Amended: Links added.
[2025-01-22] MEDS ORDERED: PoTASSium chl 10% ELIXIR 20MEQ 20 MEQ/15 ML UDCUP PO PRN (19:30)
[2025-01-23] VITALS (7 sets, daily range): BP systolic 98–113; BP diastolic 55–82; PULSE 69–79; RESP 10–28; TEMP 98–99.1; O2SAT 97
[2025-01-23] MEDS: PoTASSium chloRIDE 20MEQ ER 20 MEQ ERTAB PO PRN (08:53)
--- NOTE | 2025-01-23 09:13 | HMCSR ---
APPROVED REPORT EXAM: Two-dimensional and M-mode echocardiogram with Doppler and color Doppler. Study Details: Deanne Boles ZEENAT INDICATION ICD: stemi 2D Dimensions RVDd2.7 cmLVEF(%)22.0 (>50%)LVED Vol(simp.)86.7 mL IVSd1.1 (0.7-1.1cm)FS(%)10 %LVES Vol(simp.)48.0 mL LVDd4.3 (3.8-5.6cm)LA (2D)3.0 (1.6-4.0cm)LVEF(%, simp.)45 % PWd1.3 (0.7-1.1cm)Ao Root(2D)3.3 (2.0-3.7cm)LA ESV INDEX (4CH)43.00 mL/m2 IVSs1.6 cmLVOT diam1.9 (1.8-2.4cm)LA ESV INDEX (2CH)21.86 mL/m2 LVDs3.8 (2.5-4.0cm)IVC diam2.5 cmLA ESV INDEX (BP)23.15 mL/m2 PWs1.1 cm Deformation Strain Apical 4-14.1 % Apical 2-10.8 % Apical 3-9.8 % Global Strain-11.6 % M-Mode Dimensions EPSS0.6 cm LA (MM)4.5 (1.6-4.0cm) Ao Root(MM)3.0 (2.0-3.7cm) Aortic Valve AoV Vmax1.2 m/Rufina Peak GR5.8 mmHgLVOT Vmax0.8 m/s AoV VTI0.2 mAo Mean GR2.9 mmHgLVOT VTI0.15 m GELY (VMAX)1.82 cm2AVA (VTI) 1.8 cm2 Mitral Valve MV E Vmax68.9 cm/sDECEL Gvpl929 ms MV A Vmax63.7 cm/sP 1/2 T44 ms E/A ratio1.1MVA (PHT)5.0 cm2 TDI E/E' Cpwvlu11.2E/E' Lateral9.3 Medial E' Peak V4.00 cm/sLateral E' Peak V7.41 cm/s Pulmonary Valve PV Vmax1.0 m/sPV VTI0.18 mPV Mean GR1.9 mmHg PV Peak GR4.1 mmHg Left Ventricle The left ventricle is normal size. There is normal LV segmental wall motion. Mild concentric left idris tricular hypertrophy. LVEF is 55%. Stage I diastolic dysfunction. Right Ventricle The right ventricle is normal size. The right ventricular systolic function is normal. Atria The left atrium size is normal. The interatrial septum is intact with no evidence for an atrial septa l defect. The right atrium size is normal. Aortic Valve The aortic valve is normal in structure. Aortic valve is trileaflet. No aortic regurgitation is prese nt. There is no aortic valvular stenosis. Mitral Valve The mitral valve is normal in structure. There is no evidence of significant mitral regurgitation. Th ere is no mitral valve stenosis. Tricuspid Valve The tricuspid valve is normal in structure. There is no tricuspid valve regurgitation noted. Pulmonic Valve The pulmonary valve is normal in structure. There is no pulmonic valvular regurgitation. Great Vessels The aortic root is normal in size. The ascending aorta is normal in size. The IVC is normal in size a nd collapses >50% with inspiration. Pericardium There is no pericardial effusion. Conclusion LVEF is 55%. Stage I diastolic dysfunction.
--- NOTE | 2025-01-23 10:23 | PN ---
[facility] PROGRESS NOTE Date of Service: Jan 23, 2025 Time of Service: 10:22 SUBJECTIVE: [ ] 64-year-old male with underlying history of type 2 diabetes mellitus, obesity, history of hypokalemia, history of hypomagnesemia on outpatient electrolyte supplementation, presented to the ER for further evaluation of chest pain.Patient reported that he developed severe chest pain close to 9-10 a.m. today accompanied by diaphoresis, and dizziness. Denies any previous history of SD or cardiac comorbidities. Chest pain was 10/10 in severity and patient describes it as pressure-like. Chest pain was nonresolving prompting him to come to the ER for further evaluation.Patient was emergently taken to the confectionery laboratory manager where he was found to have proximal right coronary 98% culprit lesion and distal right coronary 90% lesion. Patient underwent PTCA and placement of drug- eluting stent to proximal RCA and distal right coronary artery. Patient was also found to have 90% proximal left circumflex stenosis and distal left circumflex 90% stenosis. Patient underwent PTCA and stenting to proximal and distal left circumflex. 01/22/25 s/p PCI patient is being followed by storage garage manager's echo is pending. Reviewed labs. Post left heart catheterization troponins elevated. No complications postprocedure. We will wait for clearance from storage garage manager's. Patient denied chest pain or shortness for breath 01/23/25 REVIEW OF SYSTEMS CONSTITUTIONAL: Denies fevers, chills, or night sweats. No unintentional weight loss reported. NEUROLOGICAL: Denies headache, amaurosis fugax, motor weakness, sensory deficit, vertigo/spinning sensation, gait abnormalities, or tremors. ENT: No hearing loss, otalgia, otorrhea, rhinitis, rhinorrhea, hoarseness, or sore throat. CARDIOVASCULAR: severe chest pain in the morning today with diaphoresis PULMONARY: Denies any shortness of breath, cough, phlegm/sputum, hemoptysis, pleuritic chest pain. SLEEP: Denies morning headaches, daytime somnolence or napping. Denies difficulty falling asleep, staying asleep, waking from sleep. Denies knowledge of snoring. GASTROINTESTINAL: Denies any type of dysphagia to either liquids or solids. Denies nausea, vomiting, pyrosis, early satiety, abdominal pain, diarrhea, constipation, or changes in stool consistency or caliber. Denies coffee-ground emesis, hematemesis, hematochezia, or melanotic stools. GENITOURINARY: Denies frequency, urgency, nocturia, hematuria or incontinence (Storage/Irritative symptoms.) Low urinary stream, straining to void, urinary intermittency or hesitancy, splitting of the voiding stream, terminal dribbling. ENDOCRINOLOGIC: Denies polyuria, polydipsia, polyphagia or heat/cold intolerances. HEMATOLOGIC: Denies thrombophilia/previous clots, or coagulopathy/bleeding disorders. ONCOLOGIC: Denies personal history of malignancy. DERMATOLOGIC: Denies rashes or pruritus. PSYCHIATRIC: Denies any suicidal or homicidal ideation. Denies hallucinations. PHYSICAL EXAM GENERAL APPEARANCE: The patient is awake, alert, and oriented, in no acute cardiopulmonary distress. NEUROLOGICAL: Cranial nerves II-XII grossly intact. Motor is 5/5 in bilateral upper and lower extremities proximal to distal. No sensory deficits. HEENT: Face is symmetric. Pupils are equal and reactive. Extraocular movements are intact. NECK: Supple. No JVD. No thyromegaly. No submental, submandibular, pre- /postauricular, occipital or supraclavicular lymphadenopathy. CHEST: Normal chest expansion. No Telemetry. LUNGS: Absence of any rales, rhonchi or any wheezing. CARDIOVASCULAR: Regular. S1 and S2 normal. No appreciable rubs, murmurs or gallops. ABDOMEN: Soft, nontender, and nondistended. There is no rebound, voluntary guarding, or rigidity. : Deferred. No Tucker. EXTREMITIES: Non-edematous and not cyanotic. No clubbing. Good capillary refill. SKIN: No skin breakdown. Vital Signs (last 8hr) Date Time Temp Pulse Resp B/P (MAP) Pulse Ox O2 Delivery O2 Flow Rate FiO2 01/23/25 08:22 98.1 79 16 112/63 94 Room Air 01/23/25 07:41 71 26 98/55 95 Room Air 01/23/25 04:00 99.1 74 28 109/66 Room Air LABS: Laboratory: Test 01/22/25 20:08 01/22/25 12:51 01/22/25 03:59 01/21/25 16:32 Range/Units Whole Blood Glucose 102 70-110 MG/DL Total Creatine Kinase 1247 *H 21-232 U/L Troponin I High Sensitivity 90502 *H 4-75 ng/L White Blood Count 7.8 4.8-10.8 K/uL Red Blood Count 4.00 #L 4.50-6.20 MIL/uL Hemoglobin 12.8 #L 14.0-18.0 g/dL Hematocrit 36.5 #L 42-54 % Mean Corpuscular Volume 91.3 79-99 fL Mean Corpuscular Hemoglobin 32.0 27.0-33.0 pg Mean Corpuscular Hemoglobin Concent 35.1 32.0-36.0 g/dL Red Cell Distribution Width 13.9 11.0-15.5 % Platelet Count 187 130-400 K/uL Mean Platelet Volume 9.5 7.5-10.5 fL Immature Granulocyte % (Auto) 0.6 0-1 % Neutrophils (%) (Auto) 65.1 40.0-77.0 % Lymphocytes (%) (Auto) 24.5 21.0-51.0 % Monocytes (%) (Auto) 8.8 3.0-13.0 % Eosinophils (%) (Auto) 0.6 0.0-8.0 % Basophils (%) (Auto) 0.4 0.0-5.0 % Neutrophils # (Auto) 5.1 1.8-7.7 K/uL Lymphocytes # (Auto) 1.9 1.0-4.8 K/uL Monocytes # (Auto) 0.7 0.1-1.0 K/uL Eosinophils # (Auto) 0.05 0.00-0.70 K/uL Basophils # (Auto) 0.03 0.00-0.20 K/uL Absolute Immature Granulocyte (auto 0.05 0-1 K/uL Nucleated Red Blood Cells 0.0 0.0-0.19 % Sodium Level 141 136-145 mmol/L Potassium Level 3.4 L 3.5-5.1 mmol/L Chloride Level 107 101-111 mmol/L Carbon Dioxide Level 28 21-32 mmol/L Blood Urea Nitrogen 20 H 7-18 mg/dL Creatinine 0.9 0.5-1.3 mg/dL Glomerular Filtration Rate Calc 97 >90 mL/min Random Glucose 120 H 70-105 mg/dL Total Calcium 7.9 L 8.5-10.1 mg/dL Magnesium Level 1.80 1.80-2.40 mg/dL Total Bilirubin 0.8 0.2-1.0 mg/dL Aspartate Amino Transf (AST/SGOT) 117 H 10-37 U/L Alanine Aminotransferase (ALT/SGPT) 67 12-78 U/L Alkaline Phosphatase 54 50-136 U/L Total Protein 5.9 #L 6.0-8.3 g/dL Albumin 2.9 #L 3.5-5.0 g/dL Prothrombin Time 10.6 9.6-11.6 SEC Prothromb Time International Ratio 1.00 0.85-1.15 Activated Partial Thromboplast Time 33.1 26.3-35.5 SEC Test 01/21/25 11:33 Range/Units Hemoglobin A1c 6.0 4.0-6.0 % Estimated Average Glucose (eAG) 126 70-126 mg/dL Direct Bilirubin 0.2 0.0-0.3 mg/dL B-Type Natriuretic Peptide 30 0-100 pg/mL Triglycerides Level 353 H 30-200 mg/dL Cholesterol Level 264 H <200 mg/dL LDL Cholesterol 171 H 0-99 mg/dL HDL Cholesterol 48 29-71 mg/dL Thyroid Stimulating Hormone (TSH) 5.17 H 0.36-3.74 uIU/mL Current Medications Medications (Trade) Dose Ordered Sig/Lalitha Route PRN Reason Start Time Stop Time Status Last Admin Dose Admin Acetaminophen (TYLenol 325MG TAB) 650 mg Q6H PRN PO MILD PAIN (1-3) 01/21/25 12:30 02/20/25 12:29 01/23/25 06:24 650 MG Acetaminophen/ Codeine Phosphate (TYLenol-coDEINE TAB) 1 tab Q4H PRN PO PAIN LEVEL 4 TO 6 01/21/25 14:00 02/20/25 13:59 Acetaminophen/ Codeine Phosphate (TYLenol-coDEINE TAB) 2 tab Q4H PRN PO MOD/SEVERE PAIN LEVEL 4 TO 10 01/21/25 14:00 02/20/25 13:59 Aspirin (Aspirin 81mg Chew Tab) 81 mg DAILY PO 01/22/25 09:00 02/21/25 08:59 01/23/25 08:44 81 MG Atorvastatin Calcium (LIPItor 40MG) 80 mg HS PO 01/21/25 21:00 02/20/25 20:59 01/22/25 20:39 80 MG Clopidogrel Bisulfate (plaVIX 75MG) 75 mg DAILY PO 01/22/25 09:00 02/21/25 08:59 01/23/25 08:44 75 MG Dextrose (D50w) 50 ml AD PRN IV HYPOGLYCEMIA PROTOCOL 01/21/25 15:30 02/20/25 15:29 Glucagon (Glucagon 1mg Kit) 1 mg AD PRN IM HYPOGLYCEMIA PROTOCOL 01/21/25 15:30 02/20/25 15:29 Heparin Sodium/ Dextrose 250 ml @ 0 mls/hr PROTOCOL PRN IV PROTOCOL 01/21/25 12:00 01/22/25 11:59 DC 01/21/25 12:05 17 MLS/HR Insulin Human Regular (humuLIN R 100 UNIT/ML 3ML) INSULIN SLIDING SCAL... ACHS SQ 01/21/25 16:30 02/20/25 16:29 Magnesium Oxide (Mag-Ox) 400 mg BID PO 01/21/25 21:00 02/20/25 20:59 01/23/25 08:44 400 MG Magnesium Sulfate 50 ml @ 0 mls/hr PROTOCOL IV 01/21/25 12:30 01/21/25 14:02 DC Magnesium Sulfate 50 ml @ 0 mls/hr PROTOCOL IV 01/21/25 14:00 02/20/25 13:59 01/21/25 17:16 1.4 MLS/HR Metoprolol Succinate (TopROL XL) 25 mg DAILY PO 01/22/25 09:00 02/21/25 08:59 01/23/25 08:44 25 MG Nitroglycerin (Nitrostat) 0.4 mg Q5M PRN SL CHEST PAIN 01/21/25 11:30 01/21/25 11:39 0.4 MG Nitroglycerin/ Dextrose 250 ml @ 0 mls/hr PROTOCOL IV 01/21/25 12:00 02/20/25 11:59 Ondansetron HCl (zoFRAN 4MG INJ) 4 mg Q6H PRN IVP NAUSEA/VOMITING 01/21/25 12:30 02/20/25 12:29 Pantoprazole Sodium (PROTonix 40MG TAB) 40 mg DAILY PO 01/22/25 09:00 02/21/25 08:59 01/23/25 08:44 40 MG Potassium Chloride 100 ml @ 100 mls/hr AD PRN IV POTASSIUM PROTOCOL 01/22/25 19:30 02/21/25 19:29 Potassium Chloride (K-Dur/Klor-Con 20meq) 20 meq AD PRN PO POTASSIUM PROTOCOL 01/22/25 19:30 02/21/25 19:29 01/23/25 08:53 20 MEQ Potassium Chloride (K-Dur/Klor-Con 20meq) 40 meq Q6H6 PO 01/21/25 18:00 01/22/25 06:01 DC 01/22/25 06:42 40 MEQ Potassium Chloride (KCl 10% Elixir 20meq/15ml) 20 meq AD PRN PO POTASSIUM PROTOCOL 01/22/25 19:30 02/21/25 19:29 Sodium Chloride 1,000 ml @ 125 mls/hr AD IV 01/21/25 14:00 01/21/25 21:59 DC 01/21/25 14:34 125 MLS/HR DIAGNOSTICS / RADIOLOGY: [ ] ASSESSMENT: ACS/ST-elevation SD, POA s/p PTCA And Drug-Eluting Stent To Proximal Right Coronary And Distal Right Coronary and Common Left Circumflex and OM2 by Dr. Donato, POA History of type 2 diabetes mellitus, POA Hyperlipidemia, POA CKD stage 3, POA Hypokalemia/hypomagnesemia, POA History of hypokalemia, POA History of hypomagnesemia, POA PLAN: admit: CCU human performance consultant: Twister Hand ACS protocol: Metoprolol Succ 256 mg po daily, Statin Lipitor 80 mg daily, We will continue on [id number] mg p.o. daily. Imaging: Echo pending results Electrolytes: replaced as per protocol to keep potassium greater than four and magnesium greater than two labs: cbc, cmp mag in am DVT GI prophylaxis Plan of care was discussed with patient at bedside, All questions addressed Further orders as per response to treatment. ATTESTATION BY PHYSICIAN I have seen and examined the patient. I reviewed the documentation, medical decision making, and treatment plan as noted by the mid-level provider above. I agree with the findings and plan of care. Sindy Ron MD, ELIZABETH NP Jan 23, 2025 10:23
--- NOTE | 2025-01-23 10:29 | DS ---
Discharge Summary Hospital Course Summary: 64-year-old male with underlying history of type 2 diabetes mellitus, obesity, history of hypokalemia, history of hypomagnesemia on outpatient electrolyte supplementation, presented to the ER for further evaluation of chest pain.Patient reported that he developed severe chest pain close to 9-10 a.m. today accompanied by diaphoresis, and dizziness. Denies any previous history of OK or cardiac comorbidities. Chest pain was 10/10 in severity and patient describes it as pressure-like. Chest pain was nonresolving prompting him to come to the ER for further evaluation.Patient was emergently taken to the [facility] where he was found to have proximal right coronary 98% culprit lesion and d istal right coronary 90% lesion. Patient underwent PTCA and placement of drug- eluting stent to proximal RCA and distal right coronary artery. Patient was also found to have 90% proximal left circumflex stenosis and distal left circumflex 90% stenosis. Patient underwent PTCA and stenting to proximal and distal left circumflex. 01/22/25 s/p PCI patient is being followed by bug trimmer's echo is pending. Reviewed labs. Post left heart catheterization troponins elevated. No complications postprocedure. We will wait for clearance from bug trimmer's. Patient denied chest pain or shortness for breath 01/23/25 PATIENT IS HEMODYNAMICALLY STABLE FOR DISCHARGE CLEARED BY SCALES INSPECTOR'S PATIENT WILL NEED TO BE ON [id number] MG P.O. DAILY ASPIRIN P.O. DAILY FOR ONE YEAR uninterrupted dual antiplatelet therapy DIRECTED BY SCALES INSPECTOR'S.The patient s/p left heart cath. with no hematoma at his right radial catheterization site, and a 2D echo and follow up 01/22/2025 demonstrated an LVEF of 55%. no complicating arrhythmia or CHF.-FABIEN inhibitor and beta-bri to promote infarct healing [id number] mg p.o. daily lisinopril five mg daily patient no chest pain events no shortness on breath palpitations or dizziness. Process Treater(s): [facility] [address] [place] [address], [place] [address] Coronary Arteriogram With Ptca And Drug-Eluting Stent To Proximal Right Coronary And Distal Right Coronary, As Well As Common Left Circumflex And Om2 Indication: STEMI with extensive ST-elevation in inferior leads and V2-V6. Technique: Patient was brought to the lab in a fasting state after informed consent and sedated with 1 mg Versed and 50 mcg fentanyl. Additional fentanyl was administered as needed during the procedure. Under local anesthesia with 1% lidocaine using ultrasound guidance right radial access was gained at a 5/6 Canadian Terumo sheath was inserted. A cocktail of 5000 units aqueous heparin, 200 mcg nicardipine and 200 mcg nitroglycerin were administered via the radial sheath. There was tortuosity at the right brachial so a baby J wire was used to advance a six Canadian take to the aortic root where left and right coronary arteriograms were attempted unsuccessfully because we could not cannulate with this catheter. We exchanged for a six Canadian 3 cm left Ena and with some difficulty engage the left main for left coronary arteriography. We exchanged for a six Canadian JR4 and engage the right coronary for right coronary arteriograms. We administered an additional 1500 units aqueous heparin intravenously. We then wire the right coronary with a 300 cm whisper wire and advanced a 3 x 20 mm mm Euphora to the proximal right coronary lesion and free dilated. We could not advance a stent so we exchanged for a guide liner, then using a fine cross exchange catheter we exchanged for a wiggle wire which was positioned in the posterolateral branch of the right coronary. We then successfully advanced a 4 x 34 mm monroe Bellbrook drug-eluting stent across the proximal right coronary stenosis, optimize positioning and deployed at nominal pressure. We inspected results and exchanged for a 3.5 x 18 mm monroe Bellbrook which was positioned across the distal right coronary stenoses and deployed at nominal pressure. We inspected results angiographically and exchanged for a six Canadian 3.0 XB guide with which we engage the left main. We then wired the circu mflex with another whisper wire and advanced the guide liner to the proximal circumflex. We pre-dilated with a 3.5 by 20 mm Euphora and exchanged for a 4 x 22 monroe Bellbrook drug-eluting stent which was positioned in the proximal circumflex and deployed at nominal pressure. We then exchanged for a 3.5 x 12 mm monroe Bellbrook which was deployed at the origin of the OM2 at nominal pre ssure. Final results were inspected and we with due the catheters and applied a Terumo sheath for hemostasis with excellent hemostasis and no complications. Heparinization was checked by a RESOURCE CONSERVATION SPECIALIST and was above 250 throughout the procedure. Patient was transferred from the lab in stable condition. 175 mL contrast was administered in total. Results: This is a right-dominant system. The right coronary supplies the posterior descending and three posterolateral johnson. There is a segmental diffuse 30 mm long 98% stenosis commencing from the conus branch through the right ventricular marginal, then there was a 90% stenosis just proximal to the 2nd posterolateral. The rest of the right coronary system is free of high-grade disease. The conus arises very near the ostium of the right coronary. The left main is free of disease. The left anterior descending supplies to diagonals and courses to the apex and is free of disease. The left circumflex supplies a tiny 1st obtuse marginal and a very large 2nd obtuse marginal which approaches the apex. Proximal to and spanning the origin of the 1st obtuse marginal is a critical 90 % stenosis and at the origin of the 2nd obtuse marginal is another 90% stenosis. Intervention: The proximal right coronary 98% culprit lesion is reduced to a 0% residual with ÁNGELA 3 flow. The distal right coronary 90% lesion is reduced to a 0% residual with ÁNGELA three flow. Proximal left circumflex 90% stenosis reduced to 0% residual with ÁNGELA three flow. Distal left circumflex 90% stenosis reduced to 0% residual with ÁNGELA three flow. Conclusions: Massive inferior and lateral STEMI treated successfully with right coronary and left circumflex drug-eluting stent implant, door to balloon time 59 minutes. Procedure(s): REASON: stemi ORDERING PHYSICIAN: BEVERLY STEWART MD PROCEDURE: ECHO [facility] - ECHO 2-D COMPLETE APPROVED REPORT EXAM: Two-dimensional and M-mode echocardiogram with Doppler and color Doppler. Study Details: Deanne Boles CP INDICATION ICD: stemi 2D Dimensions RVDd 2.7 cm LVEF(%) 22.0 (>50%) LVED Vol(simp.) 86.7 mL IVSd 1.1 (0.7-1.1cm) FS(%) 10 % LVES Vol(simp.) 48.0 mL LVDd 4.3 (3.8-5.6cm) LA (2D) 3.0 (1.6-4.0cm) LVEF(%, simp.) 45 % PWd 1.3 (0.7-1.1cm) Ao Root(2D) 3.3 (2.0-3.7cm) LA ESV INDEX (4CH) 43.00 mL/m2 IVSs 1.6 cm LVOT diam 1.9 (1.8-2.4cm) LA ESV INDEX (2CH) 21.86 mL/m2 LVDs 3.8 (2.5-4.0cm) IVC diam 2.5 cm LA ESV INDEX (BP) 23.15 mL/m2 PWs 1.1 cm Deformation Strain Apical 4 -14.1 % Apical 2 -10.8 % Apical 3 -9.8 % Global Strain -11.6 % M-Mode Dimensions EPSS 0.6 cm LA (MM) 4.5 (1.6-4.0cm) Ao Root(MM) 3.0 (2.0-3.7cm) Aortic Valve AoV Vmax 1.2 m/s Ao Peak GR 5.8 mmHg LVOT Vmax 0.8 m/s AoV VTI 0.2 m Ao Mean GR 2.9 mmHg LVOT VTI 0.15 m GELY (VMAX) 1.82 cm2 GELY (VTI) 1.8 cm2 Mitral Valve MV E Vmax 68.9 cm/s DECEL Time 135 ms MV A Vmax 63.7 cm/s P 1/2 T 44 ms E/A ratio 1.1 MVA (PHT) 5.0 cm2 TDI E/E' Medial 17.2 E/E' Lateral 9.3 Medial E' Peak V 4.00 cm/s Lateral E' Peak V 7.41 cm/s Pulmonary Valve PV Vmax 1.0 m/s PV VTI 0.18 m PV Mean GR 1.9 mmHg PV Peak GR 4.1 mmHg Left Ventricle The left ventricle is normal size. There is normal LV segmental wall motion. Mild concentric left ventricular hypertrophy. LVEF is 55%. Stage I diastolic dysfunction. Right Ventricle The right ventricle is normal size. The right ventricular systolic function is normal. Atria The left atrium size is normal. The interatrial septum is intact with no evidence for an atrial septal defect. The right atrium size is normal. Aortic Valve The aortic valve is normal in structure. Aortic valve is trileaflet. No aortic regurgitation is present. There is no aortic valvular stenosis. Mitral Valve The mitral valve is normal in structure. There is no evidence of significant mitral regurgitation. There is no mitral valve stenosis. Tricuspid Valve The tricuspid valve is normal in structure. There is no tricuspid valve regurgitation noted. Pulmonic Valve The pulmonary valve is normal in structure. There is no pulmonic valvular regurgitation. Great Vessels The aortic root is normal in size. The ascending aorta is normal in size. The IVC is normal in size and collapses >50% with inspiration. Pericardium There is no pericardial effusion. Conclusion LVEF is 55%. Stage I diastolic dysfunction. REASON: gala on ckd ORDERING PHYSICIAN: BEVERLY STEWART MD PROCEDURE: RENAL - US RENAL SONOGRAM EXAMINATION: ULTRASOUND OF THE RETROPERITONEUM. CLINICAL HISTORY: GALA on CKD. COMPARISON: None. TECHNIQUE: Real-time grayscale ultrasound images of the kidneys. FINDINGS: The kidneys are normal in caliber, the right kidney measures 9.6 x 4.7 x 5.2 cm and the left kidney measures 9.9 x 4.2 x 4.9 cm in its craniocaudal, AP, and transverse dimensions respectively. There is normal renal cortical thickness, and increased cortical echogenicity. There is no right renal calculus or hydronephrosis bilaterally. There are calculi that measure 0.9 x 0.5 cm in the upper pole and 0.6 x 0.6 cm in the mid pole of the left kidney. The urinary bladder is normal in caliber and wall thickness. There are no calculi in the urinary bladder. IMPRESSION: Bilateral renal parenchymal disease. Left renal calculi. No obstruction. REASON: cp ORDERING PHYSICIAN: ISABELLA DIAZ MD PROCEDURE: CXR1VW - CHEST 1VW EXAM: CR Chest, 1 View. CLINICAL HISTORY: cp COMPARISON: None provided. FINDINGS: LUNGS: The lungs show no infiltrate or other acute finding. PLEURAL SPACES: No evidence of pleural effusion or pneumothorax. MEDIASTINUM: Cardiac size and mediastinal contours within normal limits. BONES: No aggressive appearing osseous lesion seen. IMPRESSION: No acute cardiopulmonary pathology is evident. /[place] Assessment/Plan: Discharged dx's; ACS/ST-elevation OK, POA s/p PTCA And Drug-Eluting Stent To Proximal Right Coronary And Distal Right Coronary and Common Left Circumflex and OM2 by Dr. Pendleton, POA History of type 2 diabetes mellitus, POA Hyperlipidemia, POA CKD stage 3, POA Hypokalemia/hypomagnesemia, POA History of hypokalemia, POA History of hypomagnesemia, POA PLAN: ADMISSION DATE: A 06/2024 DISCHARGE DATE: 01/23/25 DISPOSITION: home CONDITION: stable RESIDENTIAL PEST CONTROL TECHNICIAN(S): bug trimmer FOLLOW UP APPOINTMENT(S): [place] [facility]: 1 wk PROCEDURES: Left Heart Cath. IMAGING (S) report attached to summary : MICROBIOLOGY: report attached to summary; ACTIVITY: Ad ovidio HOME MEDICATIONS remain the same CHANGES ON HOME MEDICATIONS none NEW MEDICATIONS new medications see below ordered by bug trimmer's TEACHING: Side effects adverse reactions of new medication. Emergency instructions: The patient was instructed to present to the nearest Emergency Department or call 911 should their symptoms return or worsen. Discharge Instructions: REASON: stemi ORDERING PHYSICIAN: BEVERLY STEWART MD PROCEDURE: ECHO [facility] - ECHO 2-D COMPLETE APPROVED REPORT EXAM: Two-dimensional and M-mode echocardiogram with Doppler and color Doppler. Study Details: Deanne M ZEENAT INDICATION ICD: stemi 2D Dimensions RVDd 2.7 cm LVEF(%) 22.0 (>50%) LVED Vol(simp.) 86.7 mL IVSd 1.1 (0.7-1.1cm) FS(%) 10 % LVES Vol(simp.) 48.0 mL LVDd 4.3 (3.8-5.6cm) LA (2D) 3.0 (1.6-4.0cm) LVEF(%, simp.) 45 % PWd 1.3 (0.7-1.1cm) Ao Root(2D) 3.3 (2.0-3.7cm) LA ESV INDEX (4CH) 43.00 mL/m2 IVSs 1.6 cm LVOT diam 1.9 (1.8-2.4cm) LA ESV INDEX (2CH) 21.86 mL/m2 LVDs 3.8 (2.5-4.0cm) IVC diam 2.5 cm LA ESV INDEX (BP) 23.15 mL/m2 PWs 1.1 cm Deformation Strain Apical 4 -14.1 % Apical 2 -10.8 % Apical 3 -9.8 % Global Strain -11.6 % M-Mode Dimensions EPSS 0.6 cm LA (MM) 4.5 (1.6-4.0cm) Ao Root(MM) 3.0 (2.0-3.7cm) Aortic Valve AoV Vmax 1.2 m/s Ao Peak GR 5.8 mmHg LVOT Vmax 0.8 m/s AoV VTI 0.2 m Ao Mean GR 2.9 mmHg LVOT VTI 0.15 m GELY (VMAX) 1.82 cm2 GELY (VTI) 1.8 cm2 Mitral Valve MV E Vmax 68.9 cm/s DECEL Time 135 ms MV A Vmax 63.7 cm/s P 1/2 T 44 ms E/A ratio 1.1 MVA (PHT) 5.0 cm2 TDI E/E' Medial 17.2 E/E' Lateral 9.3 Medial E' Peak V 4.00 cm/s Lateral E' Peak V 7.41 cm/s Pulmonary Valve PV Vmax 1.0 m/s PV VTI 0.18 m PV Mean GR 1.9 mmHg PV Peak GR 4.1 mmHg Left Ventricle The left ventricle is normal size. There is normal LV segmental wall motion. Mild concentric left ventricular hypertrophy. LVEF is 55%. Stage I diastolic dysfunction. Right Ventricle The right ventricle is normal size. The right ventricular systolic function is normal. Atria The left atrium size is normal. The interatrial septum is intact with no evidence for an atrial septal defect. The right atrium size is normal. Aortic Valve The aortic valve is normal in structure. Aortic valve is trileaflet. No aortic regurgitation is present. There is no aortic valvular stenosis. Mitral Valve The mitral valve is normal in structure. There is no evidence of significant mitral regurgitation. There is no mitral valve stenosis. Tricuspid Valve The tricuspid valve is normal in structure. There is no tricuspid valve regurgitation noted. Pulmonic Valve The pulmonary valve is normal in structure. There is no pulmonic valvular regurgitation. Great Vessels The aortic root is normal in size. The ascending aorta is normal in size. The IVC is normal in size and collapses >50% with inspiration. Pericardium There is no pericardial effusion. Conclusion LVEF is 55%. Stage I diastolic dysfunction. DICTATED BY: ARIEL PENDLETON MD DATE: 01/22/25 1101 REASON: gala on ckd ORDERING PHYSICIAN: BEVERLY STEWART MD PROCEDURE: RENAL - US RENAL SONOGRAM EXAMINATION: ULTRASOUND OF THE RETROPERITONEUM. CLINICAL HISTORY: GALA on CKD. COMPARISON: None. TECHNIQUE: Real-time grayscale ultrasound images of the kidneys. FINDINGS: The kidneys are normal in caliber, the right kidney measures 9.6 x 4.7 x 5.2 cm and the left kidney measures 9.9 x 4.2 x 4.9 cm in its craniocaudal, AP, and transverse dimensions respectively. There is normal renal cortical thickness, and increased cortical echogenicity. There is no right renal calculus or hydronephrosis bilaterally. There are calculi that measure 0.9 x 0.5 cm in the upper pole and 0.6 x 0.6 cm in the mid pole of the left kidney. The urinary bladder is normal in caliber and wall thickness. There are no calculi in the urinary bladder. IMPRESSION: Bilateral renal parenchymal disease. Left renal calculi. No obstruction. /[place] REASON: cp ORDERING PHYSICIAN: ISABELLA DIAZ MD PROCEDURE: CXR1VW - CHEST 1VW EXAM: CR Chest, 1 View. CLINICAL HISTORY: cp COMPARISON: None provided. FINDINGS: LUNGS: The lungs show no infiltrate or other acute finding. PLEURAL SPACES: No evidence of pleural effusion or pneumothorax. MEDIASTINUM: Cardiac size and mediastinal contours within normal limits. BONES: No aggressive appearing osseous lesion seen. IMPRESSION: No acute cardiopulmonary pathology is evident. [facility] Medications: Reported Medications Potassium Chloride (Potassium Chloride) 20 Meq Tab.er.prt, 2 TAB PO TID for 30 Days, #60 TAB 0 Refills 01/21/25 Magnesium Oxide (Magnesium) 400 Mg Magnesium Tablet, 400 MG PO BID, TAB 01/21/25 Glipizide (Glipizide ER) 10 Mg Tab.er.24, 1 TAB PO DAILY for 30 Days, #30 TAB 0 Refills 01/21/25 New Medications: Aspirin (Aspirin EC) 81 Mg Tablet.dr 81 MG PO DAILY, #100 TAB 3 Refills Atorvastatin Calcium (Lipitor) 40 Mg Tablet 80 MG PO HS for 90 Days, #90 TAB 3 Refills Clopidogrel Bisulfate (Plavix) 75 Mg Tablet 75 MG PO DAILY for 90 Days, #90 TAB 3 Refills Lisinopril (Lisinopril) 2.5 Mg Tablet 5 MG PO DAILY for 90 Days, #90 TAB 3 Refills Metoprolol Succinate (Metoprolol Succinate) 25 Mg Tab.er.24h 25 MG PO DAILY for 90 Days, #90 TAB 3 Refills Continued Medications: Glipizide (Glipizide ER) 10 Mg Tab.er.24 1 TAB PO DAILY for 30 Days, #30 TAB 0 Refills Magnesium Oxide (Magnesium) 400 Mg Magnesium Tablet 400 MG PO BID, TAB Potassium Chloride (Potassium Chloride) 20 Meq Tab.er.prt 2 TAB PO TID for 30 Days, #60 TAB 0 Refills Time spent arranging discharge: 31-60 minutes ATTESTATION BY PHYSICIAN I have seen and examined the patient. I reviewed the documentation, medical decision making, and treatment plan as noted by the mid-level provider above. I agree with the findings and plan of care. Sindy Ron MD, ELIZABETH NP Jan 23, 2025 10:29
[2025-01-23 10:45] LABS: IMMATURE GRANULOCYTE ABSOLUTE 0.03 K/uL (0-1); NUCLEATED RED BLOOD CELLS 0.0 % (0.0-0.19); PLATELET COUNT (AUTO) 182 K/uL (130-400); RED BLOOD CELL COUNT(AUTO) 4.14 MIL/uL (4.50-6.20); RED CELL DISTRIBUTION WIDTH 13.9 % (11.0-15.5); WHITE BLOOD COUNT (AUTO) 8.6 K/uL (4.8-10.8)
[2025-01-23 11:00] LABS: ASPARTATE AMINOTRANSFERASE 86.0 U/L (10-37); CREATININE 1.1 mg/dL (0.5-1.3); GLOMERULAR FILTR. RATE CALC 76.0 mL/min (>90); GLUCOSE,RANDOM 136.0 mg/dL (70-105); SODIUM SERUM 141.0 mmol/L (136-145); TOTAL PROTEIN, SERUM 6.1 g/dL (6.0-8.3); UREA NITROGEN, BLOOD 22.0 mg/dL (7-18)
--- NOTE | 2025-01-23 13:50 | PN ---
[facility] CARDIOLOGY PROGRESS NOTE Date Patient Seen: Jan 23, 2025 Time of Visit: 13:23 Interval History: This 64-year-old [place] male with a history of type 2 diabetes, hyperlipidemia, stage III chronic renal insufficiency, hypokalemia and hypomagnesemia, but no cardiac history presented 01/21/2025 with chest pain and acute inferolateral STEMI. He was taken directly to the cardiac catheterization laboratory where he underwent primary PCI with PTCA/CAROL by Dr. Donato to the culprit lesions in the RCA (98% proximal RCA with a 4.0 x [address] [facility] CAROL), and a distal 90% stenosis in the posterolateral segment (with a 3.5 x [address] [facility] CAROL). In addition for critical lesions in the left circumflex he received a 4.0 x [address] [facility] CAROL to the proximal LCX 90% stenosis and a 3.[address] [facility] CAROL to the mid left circumflex extending into the OM2. The patient has had an uneventful recovery with no hematoma at his right radial catheterization site, and a 2D echo and follow up 01/22/2025 demonstrated an LVEF of 55%. He has had no complicating arrhythmia or CHF. Physical Examination: GENERAL: No acute distress. HEAD: Normal with no signs of head trauma. EYES: PERRLA, EOMI, conjunctiva and sclera normal. NECK: Supple without JVD. There is no tenderness, lymphadenopathy, or masses. No thyromegaly. Normal carotid upstrokes without bruits. LUNGS: Clear breath sounds bilaterally. No wheezes, or rhonchi. HEART: Normal rate and rhythm. Normal S1 and S2 without murmurs, gallop or rub. VASC: Peripheral pulses +2 bilaterally. EXT: No clubbing, cyanosis or edema. NEURO: Awake, alert, and oriented x3. No focal neurological deficits noted. Laboratory: Hematology Labs: Test 01/23/25 10:40 Range/Units White Blood Count 8.6 4.8-10.8 K/uL Red Blood Count 4.14 L 4.50-6.20 MIL/uL Hemoglobin 13.1 L 14.0-18.0 g/dL Hematocrit 38.2 L 42-54 % Mean Corpuscular Volume 92.3 79-99 fL Mean Corpuscular Hemoglobin 31.6 27.0-33.0 pg Mean Corpuscular Hemoglobin Concent 34.3 32.0-36.0 g/dL Red Cell Distribution Width 13.9 11.0-15.5 % Platelet Count 182 130-400 K/uL Mean Platelet Volume 9.5 7.5-10.5 fL Immature Granulocyte % (Auto) 0.4 0-1 % Neutrophils (%) (Auto) 70.1 40.0-77.0 % Lymphocytes (%) (Auto) 19.7 L 21.0-51.0 % Monocytes (%) (Auto) 8.4 3.0-13.0 % Eosinophils (%) (Auto) 0.9 0.0-8.0 % Basophils (%) (Auto) 0.5 0.0-5.0 % Neutrophils # (Auto) 6.0 1.8-7.7 K/uL Lymphocytes # (Auto) 1.7 1.0-4.8 K/uL Monocytes # (Auto) 0.7 0.1-1.0 K/uL Eosinophils # (Auto) 0.08 0.00-0.70 K/uL Basophils # (Auto) 0.04 0.00-0.20 K/uL Absolute Immature Granulocyte (auto 0.03 0-1 K/uL Nucleated Red Blood Cells 0.0 0.0-0.19 % Chemistry Labs: Test 01/23/25 11:40 01/23/25 10:40 01/22/25 12:51 Range/Units Whole Blood Glucose 110 70-110 MG/DL Sodium Level 141 136-145 mmol/L Potassium Level 3.1 L 3.5-5.1 mmol/L Chloride Level 102 101-111 mmol/L Carbon Dioxide Level 28 21-32 mmol/L Blood Urea Nitrogen 22 H 7-18 mg/dL Creatinine 1.1 0.5-1.3 mg/dL Glomerular Filtration Rate Calc 76 >90 mL/min Random Glucose 136 H 70-105 mg/dL Total Calcium 8.3 L 8.5-10.1 mg/dL Magnesium Level 1.60 L 1.80-2.40 mg/dL Total Bilirubin 1.1 H 0.2-1.0 mg/dL Aspartate Amino Transf (AST/SGOT) 86 H 10-37 U/L Alanine Aminotransferase (ALT/SGPT) 56 12-78 U/L Alkaline Phosphatase 58 50-136 U/L Total Protein 6.1 6.0-8.3 g/dL Albumin 2.8 L 3.5-5.0 g/dL Total Creatine Kinase 1247 *H 21-232 U/L Troponin I High Sensitivity 52258 *H 4-75 ng/L Coagulation Labs: Test 01/21/25 16:32 Range/Units Prothrombin Time 10.6 9.6-11.6 SEC Prothromb Time International Ratio 1.00 0.85-1.15 Activated Partial Thromboplast Time 33.1 26.3-35.5 SEC Diagnostics / Radiology: 2D echo 01/22/2025: Conclusion LVEF is 55%. Stage I diastolic dysfunction. No significant mitral regurgitation. Impression and Plan: Acute inferior STEMI s/p primary coronary intervention with door to balloon time of 59 minutes: PTCA/CAROL by Dr. Azeem Donato to the culprit lesions in the RCA (98% proximal RCA with a 4.0 x [address] [facility] CAROL), and a distal 90% stenosis in the posterolateral segment (with a 3.5 x [address] [facility] CAROL). In addition for critical lesions in the left circumflex he received a 4.0 x [address] [facility] CAROL to the proximal LCX 90% stenosis and a 3.[address] [facility] CAROL to the mid left circumflex extending into the OM2: -stable 48 hours status post MA -cleared for discharge home on the below regimen -advised about the importance of uninterrupted dual antiplatelet therapy to complete one year of therapy including [id number] mg daily and clopidogrel 75 mg daily -FABIEN inhibitor and beta-bri to promote infarct healing -follow up at the [facility] in 1-2 weeks to follow up with Dr. Donato Preserved LV function by 2D echo 01/22/2025 with LVEF of 55%: -suggests significant salvage myocardium Comorbidities: Type 2 diabetes mellitus Hyperlipidemia Stage III chronic renal insufficiency History of hypokalemia and hypomagnesemia Recommended discharge medications: Aspirin 81 mg p.o. daily Clopidogrel 75 mg p.o. daily Metoprolol succinate ER 25 mg p.o. daily Lisinopril 5 mg p.o. daily Atorvastatin 80 mg p.o. daily Usual home medications otherwise JUDE BUTCHER MD Jan 23, 2025 13:50
[2025-01-23] MEDS ORDERED: METO-408 PO (13:53)
[2025-01-23] MEDS ORDERED: ATOR40TA69 PO (13:53)
[2025-01-23] MEDS ORDERED: CLOP-31 PO (13:53)
[2025-01-23] MEDS ORDERED: ASPI-1443 PO (13:53)
[2025-01-23] MEDS ORDERED: LISI2.5T13 PO (13:53)
== END 2025-01-23 16:59 | disposition home or self-care (01) | DRG 321 ==
LOC: EDH 11:20 → EDHIP 11:21 → 2BH 14:40
PROVIDERS: ADMIT Internal Medicine; ATTEND Internal Medicine
PROC: 027237Z Dilation of Coronary Artery, Three Arteries with Four or More Drug-eluting Intraluminal Devices, Percutaneous Approach (ICD-10-PCS; principal; 2025-01-21)
PROC: 4A023N7 Measurement of Cardiac Sampling and Pressure, Left Heart, Percutaneous Approach (ICD-10-PCS; 2025-01-21)
PROC: B2111ZZ Fluoroscopy of Multiple Coronary Arteries using Low Osmolar Contrast (ICD-10-PCS; 2025-01-21)
DX: I21.19 ST elevation (STEMI) myocardial infarction involving other coronary artery of inferior wall (principal); N17.9 Acute kidney failure, unspecified; I25.10 Atherosclerotic heart disease of native coronary artery without angina pectoris; N18.30 Chronic kidney disease, stage 3 unspecified; I12.9 Hypertensive chronic kidney disease with stage 1 through stage 4 chronic kidney disease, or unspecified chronic kidney disease; E83.42 Hypomagnesemia; E78.5 Hyperlipidemia, unspecified; E66.9 Obesity, unspecified; E11.22 Type 2 diabetes mellitus with diabetic chronic kidney disease; E87.6 Hypokalemia; Z79.899 Other long term (current) drug therapy; Z98.61 Coronary angioplasty status; Z68.33 Body mass index [BMI] 33.0-33.9, adult
CPT/HCPCS: 36415; 71045; 76770; 80048; 80053; 80061; 80076; 82550; 82948; 83036; 83735; 83880; 84443; 84484; 85025; 85347; 85610; 85730; 93005; 93306; 93356; 93454; 99156; 99157; 99285; C1769; C1887; C1894; C9600; C9601; G0378; J0461; J0583; J1644; J2250; J3010; J3475; J3490; Q9967; C1725; C1874; Q9965